=== PATIENT | female | born 1955 | race Caucasian/White ===

== ENCOUNTER 2017-04-05 03:03 | Inpatient (IN) ==
[2017-04-05] MEDS ORDERED: cefTRIAXone 1,000 MG in SODIUM CHLORIDE 0.9% 100 ML IV STA (03:16)
[2017-04-05] MEDS ORDERED: methylPREDNISolone SOD SUC 125 MG/2 ML VIAL IV STA (03:16)
[2017-04-05 03:24] LABS: Basophils # 0.1 10*3/uL (0.0-0.2); Basophils % 0.8 % (0.0-0.8); Eosinophils # 0.6 10*3/uL (0.0-0.87); Eosinophils % 6.8 % (0.00-10.9); Hematocrit 39.7 VOL% (35.7-47.0); Hemoglobin 13.8 GM/DL (12.0-16.0); Immature Granulocytes % 0.3 %; Immature Granulocytes Absolute 0.03 #; Lymphocytes # 1.6 10*3/uL (1.4-4.0); Lymphocytes % 17.9 % (21.3-54.2); Mean Corpuscular HGB Conc 34.8 GM/DL (32-36); Mean Corpuscular Hemoglobin 31 PG (27-34); Mean Platelet Volume 8.4 FL (9.6-12.0); Monocytes # 0.7 10*3/uL (0.11-0.8); Monocytes % 7.3 % (1.7-12.7); Neutrophils % 66.9 % (38.7-73.9); Platelet Count 232 T/CUMM (130-400); Red Blood Count 4.46 MC/CUMM (3.8-5.5); White Blood Count 8.9 T/CUMM (4-12)
--- NOTE | 2017-04-05 03:24 | Emergency Department Note ---
Rei Henry Hilary, am scribing for, and in the presence of, Rob Gary MD 03:22. Cookie Henry Charles R, MD, personally performed the services described in this documentation, ascribed by Kerry Minaya in my presence, and it is both accurate and complete 324 . Arrival - Arrival Chief Complaint: Shortness of Breath Stated Complaint: have COPD ED Nursing Triage Note: pt to room via wc. pt states she has been sob all night . pt has audible wheezing. pt states she took a breathing tx but did not get any better. Mode of Arrival: Wheelchair Limitations: No Limitations Source: Patient, Significant other (), RN Notes Reviewed Time Seen by Provider: 04/05/17 03:13 - History of Present Illness HPI Narrative: Pt is a 62 y/o white female presenting to the ED with c/o SOB which onset this evening. Pt reports that she has COPD and does home breathing treatments at home but doesn't have in home oxygen. Pts confirms that she did her last breathing treatment 40 min ago with no relief. No other complaints or problems stated in the ED. Onset (ago): hour(s) Consistency: constant Severity: moderate Severity scale (1-10): 5 Allergies/Adverse Reactions: Allergies Allergy/AdvReac Type Severity Reaction Status Date / Time Sulfa (Sulfonamide Allergy ITCHING Verified 04/05/17 03:16 Antibiotics) Review of System - Review of System 12 point system: reviewed and no additional remarkable complaints except as stated - Review of System Constitutional: Absent: fever Respiratory: Present: respiratory distress (SOB) Cardiovascular: Absent: chest pain Medical,Surgical,& Family Hx - Medical History Respiratory: History of: COPD - Social History Smoking Status: Former smoker Frequency of Alcohol Use: None Type of Drug Use: None Exam Vital Signs: Vital Signs Temperature 98.1 F 04/05/17 03:07 Pulse Rate 48 L 04/05/17 03:42 Respiratory Rate 20 04/05/17 03:42 Blood Pressure 150/80 04/05/17 03:07 O2 Sat by Pulse Oximetry 99 04/05/17 03:42 - General General appearance: alert, in no apparent distress - Head Head exam: Present: atraumatic, normocephalic - Eye Eye exam: Present: normal appearance, PERRL, EOMI - ENT ENT exam: Present: mucous membranes moist, TM's normal bilaterally. Absent: mucous membranes dry - Neck Neck exam: Present: full ROM, trachea midline. Absent: tenderness - Chest Chest inspection: Present: symmetric chest wall rise. Absent: tenderness - Respiratory Respiratory exam: Present: respiratory distress (moderate respiratory distress) , rhonchi, wheezes. Absent: normal lung sounds bilaterally (decreased breath sounds) - Cardiovascular Cardiovascular exam: Present: normal rhythm, tachycardia, normal heart sounds. Absent: murmur, rubs, gallop - Abdominal Exam Abdominal exam: Present: soft, normal bowel sounds. Absent: distention, tenderness - Extremities Exam Extremities exam: Present: full ROM. Absent: tenderness - Back Exam Back exam: Present: full ROM. Absent: tenderness - Neurological Exam Neurological exam: Present: alert, oriented X3, CN II-XII intact. Absent: motor sensory deficit - Psychiatric Psychiatric exam: Present: normal affect, normal mood - Skin Skin exam: Present: warm, dry, intact, normal color. Absent: rash Course - Reevaluation(s) Reevaluation #1: Patient reevaluated her heart rate has slowed down she is not having frequent PVCs she feels much better never had chest pain labs are within normal limits. We will put her in the hospital for COPD exacerbation. Patient still has having widespread rhonchi wheezing overall improvement of her breathing but still respiratory distress Time: 04:22 - Consultations Time: 04:22 Results - Labs CBC & BMP: 04/05/17 03:20 04/05/17 03:20 Lab Results: I have reviewed the patients labs Labs: Laboratory Tests 04/05/17 03:20 INR 1.0 PT Patient/Control Mix 10.4 D-Dimer, Quantitative <= 0.5 Laboratory Tests 04/05/17 03:39 ABG pO2 102.0 H ABG Total CO2 19.3 L ABG Base Excess -2.9 L Laboratory Tests 04/05/17 04/05/17 03:20 03:20 WBC 8.9 RBC 4.46 Hgb 13.8 Hct 39.7 MPV 8.4 L Lymph % (Auto) 17.9 L Sodium 141 Potassium 3.8 Chloride 106 Carbon Dioxide 25 Glucose 164 H Total Bilirubin < 0.39 L Critical Care Time Critical Care Time: Yes Total Critical Care Time: 60 Disposition Clinical Impression: Acute exacerbation of chronic obstructive airways disease, Hypoxia, Acute respiratory distress Case discussed with: patient, patient's family Disposition: Still a Patient Condition: Guarded Time of Disposition: 04:25
[2017-04-05] MEDS ORDERED: methylPREDNISolone SOD SUC 125 MG/2 ML VIAL ONE (03:26)
[2017-04-05] MEDS ORDERED: cefTRIAXone 1,000 MG VIAL ONE (03:26)
[2017-04-05] MEDS ORDERED: ALBUTEROL 2.5 MG/3 ML NEB RESP TX SCH (03:30)
[2017-04-05 03:36] LABS: D-Dimer <= 0.5 MG/L FEU; PT Patient Result 10.4 SECS
[2017-04-05 03:50] LABS: Alanine Aminotransferase 43 U/L (13-56); Albumin 3.8 G/DL (3.4-5.0); Alkaline Phosphatase 98 U/L (45-117); Aspartate Amino Transferase 26 U/L (0-37); Blood Urea Nitrogen 11 MG/DL (7-18); Calcium 9.3 MG/DL (8.5-10.1); Glucose 164 MG/DL (74-106); Magnesium 1.8 MG/DL (1.8-2.4); Osmolality,Calculated 283.3 MOS/KG (273-304); Potassium 3.8 MMOL/L (3.5-5.1); Sodium 141 MMOL/L (136-145); Total Protein 6.6 G/DL (6.4-8.3); Troponin I Only 0.036 NG/ML (0.00-0.045)
[2017-04-05 03:58] LABS: ABG Base Excess -2.9 MMOL/L (-2.5-2.5); ABG Oxygen Saturation 97.6 % (95-100); ABG PCO2 38.2 MM HG (35-48); ABG PH 7.369 (7.35-7.45); ABG TCO2 19.3 MMOL/L (23-27)
[2017-04-05] MEDS ORDERED: ENOXAPARIN 40 MG/0.4 ML SYRINGE SUBCUT STA (04:29)
[2017-04-05] MEDS ORDERED: ENOXAPARIN 40 MG/0.4 ML SYRINGE ONE (04:46)
[2017-04-05] MEDS ORDERED: ONDANSETRON 4 MG/2 ML VIAL IV PRN (05:01)
[2017-04-05] MEDS ORDERED: ALBUTEROL/IPRATROPIUM 3 ML NEB RESP TX PRN (05:01)
[2017-04-05] MEDS ORDERED: MORPHINE 2 MG/1 ML SYRINGE IV PRN (05:01)
--- NOTE | 2017-04-05 05:02 | Hospitalist History & Physical ---
Assessment and Plan (1) Frequent PVCs Status: Acute Current Visit: Yes (2) Acute exacerbation of chronic obstructive airways disease Status: Acute Current Visit: Yes (3) Hypoxia Status: Acute Current Visit: Yes (4) Acute respiratory distress Status: Acute Assessment and plan: Our plan for this patient will be admitting her to our service. I would like to consult both pulmonary and cardiology and assistance with this patient. Schedule breathing treatments and steroids home meds as appropriate when they are confirmed Current Visit: Yes History of Present Illness Chief complaint: Shortness of breath History of present illness: Ms. Shine is a 62 year old female past medical history including COPD bipolar disorder seizure disorder hypertension and insomnia has been struggling with shortness of breath 8 days. She quit smoking approximately 4-1/2 years ago. Was diagnosed with COPD and is on Spiriva. She has not been followed by a poke in. Yesterday she went to her neurologist and he gave her steroid shot and some cough syrup. She did a little bit better for little while. Her woke up tonight and found her on the couch. She was wheezing and had taken 2 breathing treatments without much results he brought her up here for further evaluation. Patient was seen in our emergency room treated with breathing treatments and steroids. Patient's rhythm strip showed a lot of PVCs. 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 We were consulted to admit her. Allergies Allergy/AdvReac Type Severity Reaction Status Date / Time Sulfa (Sulfonamide Allergy ITCHING Verified 04/05/17 03:16 Antibiotics) Medical,Surgical,& Family Hx - Medical History Respiratory: History of: COPD - Surgical History Abdominal Surgeries: Surgical HX of: Cholecystectomy Reproductive Surgeries: Surgical HX of;: Breast Surgery, Hysterectomy - Family History Family History: Reports;: Family Cancer, Family Diabetes, Family Heart Disease - Social History Smoking Status: Former smoker Frequency of Alcohol Use: None Type of Drug Use: None 12 point system: reviewed and no additional remarkable complaints except as stated Exam - Constitutional Vitals: Period Temp Pulse Resp BP Sys/Heath Pulse Ox Last 24 Hr 98.1 F-98.1 F 48-118 20-228 150-159/80-83 85-99 - General General appearance: alert, in no apparent distress - Head Head exam: Present: atraumatic, normocephalic - Eye Eye exam: Present: normal appearance, PERRL, EOMI - ENT ENT exam: Present: mucous membranes moist, TM's normal bilaterally - Neck Neck exam: Present: full ROM, trachea midline - Chest Chest inspection: Present: symmetric chest wall rise - Respiratory Respiratory exam: Present: respiratory distress (moderate respiratory distress) , rhonchi, wheezes. - Cardiovascular Cardiovascular exam: Present: normal rhythm, tachycardia, normal heart sounds. - Abdominal Exam Abdominal exam: Present: soft, normal bowel sounds. . - Extremities Exam Extremities exam: Present: full ROM. . - Back Exam Back exam: Present: full ROM. . - Neurological Exam Neurological exam: Present: alert, oriented X3, CN II-XII intact. - Psychiatric Psychiatric exam: Present: normal affect, normal mood - Skin Skin exam: Present: warm, dry, intact, normal color. Results - Labs CBC & BMP: 04/05/17 03:20 04/05/17 03:20
--- NOTE | 2017-04-05 05:36 | EKG Report ---
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
--- NOTE | 2017-04-05 06:02 | EKG Report ---
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
[2017-04-05] MEDS: SODIUM CHLORIDE 0.9% 1,000 ML IV SCH ×2 (06:28→18:05)
--- NOTE | 2017-04-05 07:35 | XRay Report ---
XR chest 1V portable Indication: SOB Comparison: Chest x-ray dated March 05, 2017 Technique: Single frontal view of the chest. Findings: The cardiomediastinal silhouette is stable in configuration. Pulmonary hyperinflation again suggests emphysematous change. There are somewhat branching linear opacities within the bilateral upper lungs which are nonspecific. Considerations include infectious/inflammatory process such as allergic bronchopulmonary aspergillosis. Visualized osseous and surrounding soft tissue structures appear grossly unchanged. IMPRESSION: As above. PROCEDURE INTERPRETED AT [facility] DEPARTMENT OF RADIOLOGY Final Report Signed by: Dr Wolf Wolf
[2017-04-05] MEDS ORDERED: ALBUTEROL 2.5 MG/3 ML NEB RESP TX PRN (08:15)
[2017-04-05] MEDS: AZITHROMYCIN INJ 500 MG in SODIUM CHLORIDE 0.9% 250 ML IV SCH (09:44)
--- NOTE | 2017-04-05 09:58 | Hospitalist Progress Note ---
Hospitalist: Subjective Interval history: I reveiwed pt's labs today. I reviewed pt's CXR report and image today. I discussed with pt in regarding her clinical status today. Pt and her states that she feels much better now with less difficulty in breathing. On physical exam, pt has wheezing at ending phase of expiration. Will change Duoneb to Q4H scheduled. Add albuterol NEB Q1H PRN. Continue oxygen. On IV rocephin and azithromycin for COPD exacerbation. Can transfer to floor with monitored bed later today if continue to do well. After midnight adm, no charge for this progress note. Guille Mayen MD PhD 04/05/17 Exam - Constitutional Vitals: Period Temp Pulse Resp BP Sys/Heath Pulse Ox Last 24 Hr 98 F-98.4 F 48-118 18-228 133-166/80-96 85-100 Results - Labs CBC & BMP: 04/05/17 03:20 04/05/17 03:20
[2017-04-05] MEDS: PANTOPRAZOLE 40 MG TABLET PO SCH ×2 (10:25→12:02)
[2017-04-05] MEDS: ALBUTEROL/IPRATROPIUM 3 ML NEB RESP TX SCH ×4 (10:50→23:23)
[2017-04-05] MEDS: methylPREDNISolone SOD SUC 40 MG/1 ML VIAL IV SCH ×2 (12:04→20:47)
[2017-04-05 12:28] LABS: Bilirubin,Total < 0.39 MG/DL (0.2-1.0)
--- NOTE | 2017-04-05 13:13 | EKG Report ---
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
--- NOTE | 2017-04-05 13:21 | Cardiology Consult Note ---
Mathieu Henry April, RN, am scribing for, and in the presence of, Ty Roldan MD 13:21. Assessment and Plan - Time spent with patient Time spent with patient: Greater than 30 minutes (Due to assessment, planning, documentation, medication review) (1) Bigeminy Status: Acute Assessment and plan: The patient is having frequent bigeminy. She had a recent workup done by Dr. Ceja including a treadmill Cardiolite, echo, Holter. These were unremarkable other than the frequent bigeminy. Intermittent minimal symptoms with it. She does not feel palpitations Plan/records: Given her lung disease would not want to use a beta-conrad Sent given her minimal symptoms with a ventricular bigeminy I would favor not use any calcium channel conrad , mexiletine, or other forms of treatment I will start her on a low-dose of magnesium and potassium as she has borderline low potassium and magnesium levels Agree with treating her COPD with exacerbation aggressively She has an E scope for sometime next week with Dr. Bean. The above was discussed with the patient. She agrees with the plan and understands. 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 Shine is a 62 year old female who is routinely followed by Dr. Ceja with a history of seizures, hypertension, and COPD. She saw Dr. Ceja in the office in January with complaints of chest pain and shortness of breath for 2 years and had a workup done. Echo showed ejection fraction of 60%. Nuclear stress test was read as a normal perfusion study, no perfusion defects noted. It was suggestive of low risk for future cardiovascular events. She had a 40 hour Holter with heart rates ranging 56-128. She had rare nonsustained supraventricular tachycardia noted that was suggestive of atrial tachycardia. Longest run was 11 beats. Frequent PVCs were noted with rare nonsustained bigeminy noted. It was felt this was not significant and no further workup was warranted. She has significant family history of heart disease that includes father with cancer and stroke, 2 brothers with history of CABG and a sister with history of CABG. She reports she quit smoking 4 years ago. Before that time she had smoked 2 packs a week for 40 years. She reports she has had complaints of "smothering" since last Saturday. She has been treated in the past for chronic bronchitis. She states is severe shortness of breath she has had this week has had no respiratory particular triggers or alleviating factors. She does note that her shortness of breath is worse in the morning and at night, it has been waking her up. She saw the neurologist at some point over the last week and he gave her a steroid shot and started on cough medicine. She has a consultation appointment to see a technical business systems analyst next month. She denies having any chest pain, palpitations, or dizziness associated with these symptoms. Chest x-ray suggested infectious/ inflammatory process such as allergic bronchopulmonary aspergillosis. Labs have been unremarkable. She was placed on oxygen and given IV Solu-Medrol in the emergency department. She reports this did help her shortness of breath. We have been asked to see the patient for PVCs. EKG showed sinus tachycardia with bigeminy, heart rate of 113. Troponin has been negative. She continues to be short of breath, but states that it is improved. Oxygen is in use via nasal cannula. She continues to deny any chest pain, palpitations, or dizziness. CC: Guille Mayen MD - Home Medications and Allergies Home Medications: Home Medications Medication Instructions Recorded Confirmed Type [place] Cap 300 mg PO BEDTIME 04/05/17 04/05/17 History NIFEdipine XL TAB [Procardia Xl] 60 mg PO DAILY 04/05/17 04/05/17 History OXcarbazepine [Oxcarbazepine] 600 mg PO DAILY 04/05/17 04/05/17 History Promethazine/Dextromethorphan 5 - 10 mls PO Q6HR PRN 04/05/17 04/05/17 History [Promethazine-Dm Syrup] Tiotropium Inhalation [Spiriva 18 mcg DAILY 04/05/17 04/05/17 History Handihaler] Trazodone HCl [Trazodone HCl] 150 mg PO BEDTIME 04/05/17 04/05/17 History Allergies/Adverse Reactions: Allergies Allergy/AdvReac Type Severity Reaction Status Date / Time Sulfa (Sulfonamide Allergy ITCHING Verified 04/05/17 03:16 Antibiotics) - Constitutional Constitutional: Present: as per HPI - EENT Eyes: Present: requires corrective lense. Absent: blurry vision, loss of vision Ears: Absent: decreased hearing, ear pain, tinnitus Nose, mouth and throat: Absent: dysphagia, epistaxis, headache(s) - Cardiovascular Cardiovascular: Present: dyspnea, lightheadedness. Absent: chest pain at rest, chest pain with activity, diaphoresis, edema, radiating jaw, neck or arm pain, orthopnea, palpitations - Respiratory Respiratory: Present: cough, dyspnea, wheezing. Absent: hemoptysis - Gastrointestinal Gastrointestinal: Absent: abdominal pain, constipation, diarrhea, hematemesis, hematochezia, melena, nausea, vomiting - Genitourinary Genitourinary: Absent: dysuria, hematuria - Musculoskeletal Musculoskeletal: Absent: limited range of motion, muscle weakness - Neurological Neurological: Present: dizziness. Absent: abnormal gait, abnormal speech, confusion, frequent falls, headache(s), syncope - Psychiatric Psychiatric: Absent: confusion, depression - Endocrine Endocrine: Absent: fatigue - Hematologic/Lymphatic Hematologic/Lymphatic: Absent: easy bleeding, easy bruising Medical,Surgical,& Family Hx - Medical History Psychological: History of: Psychiatric Problems (take lithuim) Respiratory: History of: COPD - Surgical History Abdominal Surgeries: Surgical HX of: Cholecystectomy Reproductive Surgeries: Surgical HX of;: Breast Surgery (Breast augmentation), Hysterectomy - Family History Family History: Reports;: Family Cancer (Father), Family Heart Disease (2 brothers and a sister) - Social History Smoking Status: Former smoker (Quit 4 years ago) Have you smoked in the last 12 months: No Frequency of Alcohol Use: None Type of Drug Use: None Marital Status: Lives With:: Spouse Functional capacity: independent ambulation Physical Examination Vital Signs Temp Pulse Resp BP Pulse Ox 98.1 F 84 228 H 150/80 85 L 04/05/17 03:07 04/05/17 03:07 04/05/17 03:07 04/05/17 03:07 04/05/17 03:07 General: Present: Appears Well, No Apparent Distress HEENT: Present: PERRL, Mucus Membranes Moist Neck: Present: Supple Neck, Midline Trachea, No Bruit Cardiac: Present: Regular Rhythm (Bigeminy), No Murmur, Tachycardia Lungs: Present: Wheezes, Scattered Rhonchi, Oxygen (Via nasal cannula) Neuro: Absent: Resting Tremor, Essential Tremor Abdomen: Present: Soft, Active Bowel Sounds, Non-Tender. Absent: Distended Skin: Present: Rash (To back, she has been seeing a child psychiatrist). Absent: Suspicious Lesions, Ulceration Musculoskeletal: Present: No Pain, Normal Range of Motion Gait: Present: Normal Gait Extremities: Present: Normal Gait, No Edema, Normal Upper Extr. Pulses, Normal Lower Extr. Pulses Result/EKG - Labs CBC & BMP: 04/05/17 03:20 04/05/17 03:20 Lab Results: I have reviewed the past 24 hour labs Labs: Laboratory Results - last 24 hr 04/05/17 04/05/17 04/05/17 03:20 03:20 03:20 WBC 8.9 RBC 4.46 Hgb 13.8 Hct 39.7 MCV 89.0 MCH 31 MCHC 34.8 RDW 12.0 Plt Count 232 MPV 8.4 L Neut % (Auto) 66.9 Lymph % (Auto) 17.9 L [place] % (Auto) 7.3 Eos % (Auto) 6.8 Baso % (Auto) 0.8 Neut # (Auto) 6.0 Lymph # (Auto) 1.6 [place] # (Auto) 0.7 Eos # (Auto) 0.6 Baso # (Auto) 0.1 Immature Gran % 0.3 Nucleated RBC % 0.0 Immature Gran # 0.03 Nucleated RBCs # 0.00 INR 1.0 PT Patient/Control Mix 10.4 D-Dimer, Quantitative <= 0.5 ABG pH ABG pCO2 ABG pO2 ABG HCO3 ABG Total CO2 ABG O2 Saturation ABG Base Excess FiO2 Sodium 141 Potassium 3.8 Chloride 106 Carbon Dioxide 25 Anion Gap 13.8 BUN 11 Creatinine 1.00 GFR Calculation 51 BUN/Creatinine Ratio 11.00 Glucose 164 H Calculated Osmolality 283.3 Calcium 9.3 Magnesium 1.8 Total Bilirubin < 0.39 L AST 26 ALT 43 Alkaline Phosphatase 98 Troponin I 0.036 B-Natriuretic Peptide Total Protein 6.6 Albumin 3.8 Globulin 2.8 Albumin/Globulin Ratio 1.3 04/05/17 04/05/17 03:20 03:39 WBC RBC Hgb Hct MCV MCH MCHC RDW Plt Count MPV Neut % (Auto) Lymph % (Auto) [place] % (Auto) Eos % (Auto) Baso % (Auto) Neut # (Auto) Lymph # (Auto) [place] # (Auto) Eos # (Auto) Baso # (Auto) Immature Gran % Nucleated RBC % Immature Gran # Nucleated RBCs # INR PT Patient/Control Mix D-Dimer, Quantitative ABG pH 7.369 ABG pCO2 38.2 ABG pO2 102.0 H ABG HCO3 22.0 ABG Total CO2 19.3 L ABG O2 Saturation 97.6 ABG Base Excess -2.9 L FiO2 28.00 Sodium Potassium Chloride Carbon Dioxide Anion Gap BUN Creatinine GFR Calculation BUN/Creatinine Ratio Glucose Calculated Osmolality Calcium Magnesium Total Bilirubin AST ALT Alkaline Phosphatase Troponin I B-Natriuretic Peptide 159 H Total Protein Albumin Globulin Albumin/Globulin Ratio - Diagnostic Findings Procedure: Chest x-ray: report reviewed by me - EKG EKG results: interpreted by me EKG shows: tachycardia, sinus rhythm (Sinus tachycardia with bigeminy) IYuli Dale, MD, personally performed the services described in this documentation, ascribed by Lore Murdock RN in my presence, and it is both accurate and complete 321 .
[2017-04-05] MEDS: LITHIUM 300 MG CAPSULE PO SCH (20:47)
[2017-04-06] MEDS: ALBUTEROL/IPRATROPIUM 3 ML NEB RESP TX SCH ×5 (03:20→19:12)
[2017-04-06] MEDS: methylPREDNISolone SOD SUC 40 MG/1 ML VIAL IV SCH ×3 (03:52→20:20)
[2017-04-06 04:48] LABS: Basophils % 0.1 % (0.0-0.8); Eosinophils % 0.1 % (0.00-10.9); Hematocrit 36.3 VOL% (35.7-47.0); Hemoglobin 12.3 GM/DL (12.0-16.0); Immature Granulocytes % 0.6 %; Immature Granulocytes Absolute 0.05 #; Lymphocytes # 0.7 10*3/uL (1.4-4.0); Lymphocytes % 8.6 % (21.3-54.2); Mean Corpuscular HGB Conc 33.9 GM/DL (32-36); Mean Corpuscular Hemoglobin 31 PG (27-34); Mean Corpuscular Volume 91.9 FL (87-102); Mean Platelet Volume 9.3 FL (9.6-12.0); Monocytes # 0.4 10*3/uL (0.11-0.8); Monocytes % 4.5 % (1.7-12.7); Neutrophils # 7.1 10*3/uL (1.4-7.4); Neutrophils % 86.1 % (38.7-73.9); Platelet Count 180 T/CUMM (130-400); Red Blood Count 3.95 MC/CUMM (3.8-5.5); White Blood Count 8.2 T/CUMM (4-12)
[2017-04-06 05:16] LABS: Calcium 8.7 MG/DL (8.5-10.1); Osmolality,Calculated 285.8 MOS/KG (273-304); Potassium 4.4 MMOL/L (3.5-5.1)
[2017-04-06 05:20] LABS: Albumin 3.1 G/DL (3.4-5.0); Bilirubin,Total 0.5 MG/DL (0.2-1.0); Calcium 8.8 MG/DL (8.5-10.1); Magnesium 2.2 MG/DL (1.8-2.4); Potassium 4.7 MMOL/L (3.5-5.1); Risk Ratio 2.1; Total Protein 5.5 G/DL (6.4-8.3)
[2017-04-06] MEDS: SODIUM CHLORIDE 0.9% 1,000 ML IV SCH (07:25)
[2017-04-06] MEDS: PANTOPRAZOLE 40 MG TABLET PO SCH ×2 (08:45→20:20)
[2017-04-06] MEDS: ENOXAPARIN 40 MG/0.4 ML SYRINGE SUBCUT SCH (08:45)
[2017-04-06] MEDS: OXcarbazepine 300 MG TABLET PO SCH (08:45)
--- NOTE | 2017-04-06 10:51 | XRay Report ---
History short of breath Comparison 04/05/2017 Mediastinal and hilar contours are unchanged No new infiltrates are seen Impression: No interval change PROCEDURE INTERPRETED AT [facility] DEPARTMENT OF RADIOLOGY Final Report Signed by: Dr. Pauly Serrano
[2017-04-06] MEDS: AZITHROMYCIN INJ 500 MG in SODIUM CHLORIDE 0.9% 250 ML IV SCH (10:58)
--- NOTE | 2017-04-06 13:28 | Hospitalist Progress Note ---
Assessment and Plan (1) Acute exacerbation of chronic obstructive airways disease Status: Acute Assessment and plan: duonebs, azithromycin, steroids 40 mg IV every 8 hours. Current Visit: Yes (2) Bigeminy Status: Acute Assessment and plan: chronic problems transferred from telemetry, monitor discontinued. Current Visit: Yes (3) GERD (gastroesophageal reflux disease) Status: Acute Assessment and plan: Scheduled for an EGD next week with Dr. Bean, protonix 40 mg po bid Current Visit: Yes Hospitalist: Subjective Interval history: Patient doing better today. Her bigeminy is already known to cardiology and no treatment is necessary. Monitor will be discontinued. Her wheezing is a little bit better today but she still very diminished. I am hep locking her fluids as her BNP is climbing Exam - Constitutional Vitals: Period Temp Pulse Resp BP Sys/Heath Pulse Ox Last 24 Hr 97.7 F-99.1 F 72-112 18-22 120-151/67-84 92-99 Exam: Heart Rate-[irregular due to bigeminy] Lungs-[diminished and wheezing] GI-[+bs soft, NT] Ext-[no edema] Neuro [Motor 5/5], [alert and oriented times 3] psych [normal mood and affect] General [no acute distress] Results - Labs CBC & BMP: 04/06/17 03:57 04/06/17 03:57 Lab Results: I have reviewed the past 24 hour labs Labs: Blood cultures 2 negative - Diagnostic Findings Procedure: Chest x-ray: report reviewed by me (No evidence of pneumonia)
--- NOTE | 2017-04-06 13:52 | Cardiology Progress Note ---
Assessment and Plan (1) Bigeminy Status: Acute Assessment and plan: The patient is having frequent bigeminy. She had a recent workup done by Dr. Ceja including a treadmill Cardiolite, echo, Holter. These were unremarkable other than the frequent bigeminy. Intermittent minimal symptoms with it. She does not feel palpitations Plan/records: Given her lung disease would not want to use a beta-conrad Sent given her minimal symptoms with a ventricular bigeminy I would favor not use any calcium channel conrad , mexiletine, or other forms of treatment I will start her on a low-dose of magnesium and potassium as she has borderline low potassium and magnesium levels Agree with treating her COPD with exacerbation aggressively She has an E scope for sometime next week with Dr. Bean. The above was discussed with the patient. She agrees with the plan and understands. Thank you for allowing me to participate in this patient's care 04/06/17 The COPD with exacerbation is better. Heart rate is trending down to low 100s PVCs are noted on monitor Less wheezing Continue current therapy Watch for any arrhythmias Current Visit: Yes (2) Acute exacerbation of chronic obstructive airways disease Status: Acute Current Visit: Yes Cardiology - PN: Subj Interval history: No chest pain. Less shortness of breath. Less wheezing. Exam (Progress Note) - Constitutional Vitals: Period Temp Pulse Resp BP Sys/Heath Pulse Ox Last 24 Hr 97.7 F-99.1 F 72-112 18-22 120-151/67-84 92-99 Exam: HEENT: Pupils equal, reactive to light and accommodation Neck: NoJVD or bruit Lungs clear to auscultation, decreased breath sounds, minimal to no wheezes Heart: Regular rhythm rate with normal S1 and S2. Apical S4 Abdomen: No hepatosplenomegaly Spine/extremities: No clubbing, cyanosis, or edema Neuro: Nonfocal Psych: No depression or anxiety Result/EKG - Labs CBC & BMP: 04/06/17 03:57 04/06/17 03:57 Labs: Laboratory Results - last 24 hr 04/06/17 04/06/17 04/06/17 03:57 03:57 03:57 WBC 8.2 RBC 3.95 Hgb 12.3 Hct 36.3 MCV 91.9 MCH 31 MCHC 33.9 RDW 12.0 Plt Count 180 D MPV 9.3 L Neut % (Auto) 86.1 H Lymph % (Auto) 8.6 L [place] % (Auto) 4.5 Eos % (Auto) 0.1 Baso % (Auto) 0.1 Neut # (Auto) 7.1 Lymph # (Auto) 0.7 L [place] # (Auto) 0.4 Eos # (Auto) 0.0 Baso # (Auto) 0.0 Immature Gran % 0.6 Nucleated RBC % 0.0 Immature Gran # 0.05 Nucleated RBCs # 0.00 Sodium 143 Potassium 4.7 Chloride 110 H Carbon Dioxide 26 Anion Gap 11.7 BUN 10 Creatinine 0.80 GFR Calculation 67 BUN/Creatinine Ratio 12.00 Glucose 120 H Calculated Osmolality 284.0 Calcium 8.8 Magnesium 2.2 Total Bilirubin 0.50 AST 15 ALT 29 Alkaline Phosphatase 78 B-Natriuretic Peptide 229 H Total Protein 5.5 L Albumin 3.1 L Globulin 2.4 Albumin/Globulin Ratio 1.2 Triglycerides 55 Cholesterol 153 LDL Cholesterol 70.0 VLDL Cholesterol 11.0 HDL Cholesterol 73 H Heart Disease Risk Ratio 2.10 04/06/17 03:57 WBC RBC Hgb Hct MCV MCH MCHC RDW Plt Count MPV Neut % (Auto) Lymph % (Auto) [place] % (Auto) Eos % (Auto) Baso % (Auto) Neut # (Auto) Lymph # (Auto) [place] # (Auto) Eos # (Auto) Baso # (Auto) Immature Gran % Nucleated RBC % Immature Gran # Nucleated RBCs # Sodium 144 Potassium 4.4 Chloride 110 H Carbon Dioxide 26 Anion Gap 12.4 BUN 10 Creatinine 0.80 GFR Calculation 67 BUN/Creatinine Ratio 12.00 Glucose 120 H Calculated Osmolality 285.8 Calcium 8.7 Magnesium 2.0 Total Bilirubin AST ALT Alkaline Phosphatase B-Natriuretic Peptide Total Protein Albumin Globulin Albumin/Globulin Ratio Triglycerides Cholesterol LDL Cholesterol VLDL Cholesterol HDL Cholesterol Heart Disease Risk Ratio Specialty Discharge - Follow Up or Referrals Follow up with: Saturnino Ceja MD [Physician] -
[2017-04-06] MEDS: FUROSEMIDE 40 MG/4 ML VIAL IV SCH (14:41)
[2017-04-06] MEDS: LITHIUM 300 MG CAPSULE PO SCH (20:20)
[2017-04-07] MEDS: ALBUTEROL/IPRATROPIUM 3 ML NEB RESP TX SCH ×7 (00:08→22:51)
[2017-04-07] MEDS: methylPREDNISolone SOD SUC 40 MG/1 ML VIAL IV SCH ×3 (03:57→18:21)
[2017-04-07 04:31] LABS: Basophils % 0.1 % (0.0-0.8); Eosinophils % 0.1 % (0.00-10.9); Hematocrit 37.7 VOL% (35.7-47.0); Hemoglobin 12.9 GM/DL (12.0-16.0); Immature Granulocytes % 0.4 %; Immature Granulocytes Absolute 0.04 #; Lymphocytes # 0.9 10*3/uL (1.4-4.0); Lymphocytes % 9.6 % (21.3-54.2); Mean Corpuscular HGB Conc 34.2 GM/DL (32-36); Mean Corpuscular Hemoglobin 31 PG (27-34); Mean Platelet Volume 9.4 FL (9.6-12.0); Monocytes # 0.5 10*3/uL (0.11-0.8); Monocytes % 5.5 % (1.7-12.7); Neutrophils # 7.6 10*3/uL (1.4-7.4); Neutrophils % 84.3 % (38.7-73.9); Platelet Count 201 T/CUMM (130-400); Red Blood Count 4.19 MC/CUMM (3.8-5.5); Red Cell Distribution Width 12.2 % (9.3-17.3); White Blood Count 9.1 T/CUMM (4-12)
[2017-04-07 04:57] LABS: Calcium 9.5 MG/DL (8.5-10.1); Magnesium 2.3 MG/DL (1.8-2.4); Osmolality,Calculated 286.8 MOS/KG (273-304); Potassium 4.3 MMOL/L (3.5-5.1)
[2017-04-07] MEDS: FUROSEMIDE 40 MG/4 ML VIAL IV SCH (08:28)
[2017-04-07] MEDS: PANTOPRAZOLE 40 MG TABLET PO SCH ×2 (08:28→20:13)
[2017-04-07] MEDS: ENOXAPARIN 40 MG/0.4 ML SYRINGE SUBCUT SCH (08:28)
[2017-04-07] MEDS: OXcarbazepine 300 MG TABLET PO SCH (08:28)
[2017-04-07] MEDS: AZITHROMYCIN INJ 500 MG in SODIUM CHLORIDE 0.9% 250 ML IV SCH (08:35)
[2017-04-07] MEDS: MONTELUKAST 10 MG TABLET PO SCH (11:48)
[2017-04-07] MEDS: BUDESONIDE/FORMOTEROL 160-4.5 INHALER 6 GM INH SCH ×2 (11:49→20:13)
--- NOTE | 2017-04-07 14:45 | Hospitalist Progress Note ---
Assessment and Plan (1) Acute exacerbation of chronic obstructive airways disease Status: Acute Assessment and plan: duonebs, azithromycin, increase steroids 125 mg IV q. 8, start Singulair, start Symbicort, start Spiriva Current Visit: Yes (2) Bigeminy Status: Acute Assessment and plan: Cardiology following. Dr. Roldan does not believe she requires a quality assurance monitor final Current Visit: Yes (3) GERD (gastroesophageal reflux disease) Status: Acute Assessment and plan: Scheduled for an EGD next week with Dr. Bean, protonix 40 mg po bid, consult Dr. Bean in a.m. as it may be exacerbating her COPD Current Visit: Yes Hospitalist: Subjective Interval history: Wheezing worse today and more short of breath. We will increase her steroids and add some Singulair and Symbicort. Dr. Roldan feels that she is stable to be off a monitor. Exam - Constitutional Vitals: Period Temp Pulse Resp BP Sys/Heath Pulse Ox Last 24 Hr 97 F-98.7 F 52-109 17-25 113-145/71-84 93-99 Exam: Heart Rate-tacky] Lungs-[diminished and more wheezing today] GI-[+bs soft, NT] Ext-[no edema] Neuro [Motor 5/5], [alert and oriented times 3] psych [normal mood and affect] General [no acute distress] Results - Labs CBC & BMP: 04/07/17 03:54 04/07/17 03:54 Lab Results: I have reviewed the past 24 hour labs Labs: Blood cultures negative no growth Specialty Discharge - Follow Up or Referrals Follow up with: Saturnino Ceja MD [Physician] -
[2017-04-07] MEDS ORDERED: NON-FORMULARY MEDICATION (Tiotropium Inhalation 18 MCG) INH SCH (15:00)
--- NOTE | 2017-04-07 17:53 | Cardiology Progress Note ---
Assessment and Plan (1) Bigeminy Status: Acute Assessment and plan: The patient is having frequent bigeminy. She had a recent workup done by Dr. Ceja including a treadmill Cardiolite, echo, Holter. These were unremarkable other than the frequent bigeminy. Intermittent minimal symptoms with it. She does not feel palpitations Plan/records: Given her lung disease would not want to use a beta-conrad Sent given her minimal symptoms with a ventricular bigeminy I would favor not use any calcium channel conrad , mexiletine, or other forms of treatment I will start her on a low-dose of magnesium and potassium as she has borderline low potassium and magnesium levels Agree with treating her COPD with exacerbation aggressively She has an E scope for sometime next week with Dr. Bean. The above was discussed with the patient. She agrees with the plan and understands. Thank you for allowing me to participate in this patient's care 04/06/17 The COPD with exacerbation is better. Heart rate is trending down to low 100s PVCs are noted on monitor Less wheezing Continue current therapy Watch for any arrhythmias 04/07/17: Increased wheezing would suggest her COPD with exacerbation slightly worse. Dr. Anali Escobar is to increase treatment for this problem Her VPB's seem to be less at this time. As assessed previously, they seem to be benign Continue current therapy. Current Visit: Yes (2) Acute exacerbation of chronic obstructive airways disease Status: Acute Current Visit: Yes Cardiology - PN: Subj Interval history: No chest pain or palpitations. Does feel slightly more short of breath. Exam (Progress Note) - Constitutional Vitals: Period Temp Pulse Resp BP Sys/Heath Pulse Ox Last 24 Hr 97 F-99.2 F 52-109 17-25 115-145/71-84 94-99 Exam: HEENT: Pupils equal, reactive to light and accommodation Neck: NoJVD or bruit Lungs increased wheezing, bilaterally. Heart: Regular rhythm rate with normal S1 and S2. Apical S4 Abdomen: No hepatosplenomegaly Spine/extremities: No clubbing, cyanosis, or edema Neuro: Nonfocal Psych: No depression or anxiety Result/EKG - Labs CBC & BMP: 04/07/17 03:54 04/07/17 03:54 Lab Results: I have reviewed the past 24 hour labs Labs: Laboratory Results - last 24 hr 04/07/17 04/07/17 03:54 03:54 WBC 9.1 RBC 4.19 Hgb 12.9 Hct 37.7 MCV 90.0 MCH 31 MCHC 34.2 RDW 12.2 Plt Count 201 MPV 9.4 L Neut % (Auto) 84.3 H Lymph % (Auto) 9.6 L [place] % (Auto) 5.5 Eos % (Auto) 0.1 Baso % (Auto) 0.1 Neut # (Auto) 7.6 H Lymph # (Auto) 0.9 L [place] # (Auto) 0.5 Eos # (Auto) 0.0 Baso # (Auto) 0.0 Immature Gran % 0.4 Nucleated RBC % 0.0 Immature Gran # 0.04 Nucleated RBCs # 0.00 Sodium 144 Potassium 4.3 Chloride 108 H Carbon Dioxide 28 Anion Gap 12.3 BUN 12 Creatinine 0.80 GFR Calculation 65 BUN/Creatinine Ratio 15.00 Glucose 123 H Calculated Osmolality 286.8 Calcium 9.5 Magnesium 2.3 Specialty Discharge - Follow Up or Referrals Follow up with: Saturnino Ceja MD [Physician] -
[2017-04-07] MEDS: LITHIUM 300 MG CAPSULE PO SCH (20:13)
[2017-04-08] MEDS: methylPREDNISolone SOD SUC 125 MG/2 ML VIAL IV SCH ×3 (01:42→17:44)
[2017-04-08] MEDS: ALBUTEROL/IPRATROPIUM 3 ML NEB RESP TX SCH ×6 (03:19→23:57)
[2017-04-08 06:56] LABS: Calcium 9.6 MG/DL (8.5-10.1); Magnesium 2.3 MG/DL (1.8-2.4); Osmolality,Calculated 283.4 MOS/KG (273-304); Potassium 3.9 MMOL/L (3.5-5.1)
[2017-04-08] MEDS: ENOXAPARIN 40 MG/0.4 ML SYRINGE SUBCUT SCH (09:51)
[2017-04-08] MEDS: FUROSEMIDE 40 MG/4 ML VIAL IV SCH (09:52)
[2017-04-08] MEDS: PANTOPRAZOLE 40 MG TABLET PO SCH ×2 (09:52→22:32)
[2017-04-08] MEDS: OXcarbazepine 300 MG TABLET PO SCH (09:53)
[2017-04-08] MEDS: MONTELUKAST 10 MG TABLET PO SCH (09:53)
[2017-04-08] MEDS: BUDESONIDE/FORMOTEROL 160-4.5 INHALER 6 GM INH SCH ×2 (09:53→22:30)
[2017-04-08] MEDS: AZITHROMYCIN INJ 500 MG in SODIUM CHLORIDE 0.9% 250 ML IV SCH (12:21)
--- NOTE | 2017-04-08 14:40 | Gastrointestinal Progress Note ---
Assessment and Plan (1) Atypical chest pain Status: Acute Assessment and plan: Patient was feeling some previous atypical chest pain when I saw her in the office on 04/04/17 along with fairly severe reflux. Sometimes her chest pain will be as high as 10 out of 10 with a slight burning quality to it. She had been on Dexilant at some point in the past but has been recently transitioned back to Nexium 40 mg daily. Here in the hospital, she is getting Protonix twice daily and she continues to do well with this will likely give her this medication instead. We will be performing upper endoscopy tomorrow in order to assess the degree of damage to the esophagus and look for evidence of Rizzo's esophagus as well as gastritis. She is not having dysphagia and does not need to be dilated. If she continues to have issues despite a normal-appearing EGD we may want to either check her gastric emptying or perform 48 hour pH monitoring study to look for complete suppression. The patient was advised of potential risks of the procedure which include but are not limited to: Leading, infection, perforation, cardiac and pulmonary compromise. Current Visit: Yes (2) GERD (gastroesophageal reflux disease) Status: Acute Assessment and plan: Patient is being covered with Protonix 40 mg twice daily for acid suppression, this appears to be doing quite well for the patient. Current Visit: Yes Gastroenterology - PN: Subj Interval history: This patient was seen in the office for initial consultation as recently as the day before she presented to the emergency room. I have made a copy of my initial consultation which should be entered into the EMR. Gracie is doing well at this point with some ongoing reflux that Dr. Escobar was concerned may be impacting her breathing. Believe Dr. Ceja was concerned about the same thing when he sent her over to see me for the consultation on 04/04/17. Her reflux is under fair control using the Protonix twice daily. She has some epigastric tenderness that she feels is secondary to the previous constant coughing. Exam (Progress Note) - Constitutional Vitals: Period Temp Pulse Resp BP Sys/Heath Pulse Ox Last 24 Hr 97.3 F-99.2 F 50-112 16-20 111-145/54-90 92-99 General appearance: mild distress (With wheezing) - Head Head exam: Present: normal inspection - Eye Eye exam: Present: EOMI - Respiratory Respiratory exam: Present: wheezes. Absent: accessory muscle use, rhonchi, stridor - Cardiovascular Cardiovascular exam: Present: regular rate and rhythm. Absent: systolic murmur - GI/Abdominal GI/Abdominal exam: Present: normal bowel sounds, tenderness (Epigastric tenderness), soft. Absent: distended, guarding, rebound - Extremities Exam Extremities exam: Absent: edema - Neurological Exam Neurological exam: Present: alert, oriented X3, CN II-XII intact. Absent: altered, motor sensory deficit - Psychiatric Psychiatric exam: Present: normal affect, normal mood. Absent: anxious - Skin Skin exam: Present: warm Results - Labs CBC & BMP: 04/07/17 03:54 04/08/17 06:04 Specialty Discharge - Follow Up or Referrals Follow up with: Saturnino Ceja MD [Physician] -
--- NOTE | 2017-04-08 14:59 | Hospitalist Progress Note ---
Hospitalist: Subjective Interval history: Patient states that her breathing is better. She states that she feels like she needs to cough up the sputum. Exam - Constitutional Vitals: Period Temp Pulse Resp BP Sys/Heath Pulse Ox Last 24 Hr 97.3 F-99.2 F 50-112 16-20 111-145/54-90 92-99 General appearance: mild distress (tachypneic but able to speak in complete sentences) - Eye Eye exam: Present: EOMI - Respiratory Respiratory exam: Present: decreased breath sounds, prolonged expiratory phase, rhonchi (no wheezes appreciated) - Cardiovascular Cardiovascular exam: Present: regular rate and rhythm - GI/Abdominal GI/Abdominal exam: Present: normal bowel sounds - Neurological Exam Neurological exam: Present: oriented X3 Results - Labs CBC & BMP: 04/07/17 03:54 04/08/17 06:04 - Impressions Assessment and Plan: 1. COPD with acute exacerbation: slowing improving; continue current regimen of steroids/leukotriene inhibitors/bronchodilators/ antibiotics; will also consult pulmonary per patient's request. Add mucinex; consult RT for home o2 evaluation when patient is near discharge 2. Bigeminy: seen by cardiology who did not recommend martha blockers; keep Mg at least 2 and K at least 4 3. GERD: seen by GI who will perform an EGD tomorrow; continue protonix Specialty Discharge - Follow Up or Referrals Follow up with: Saturnino Ceja MD [Physician] -
--- NOTE | 2017-04-08 17:16 | Cardiology Progress Note ---
Jose Henry Vanessa, RN, am scribing for, and in the presence of, Saturnino Allen MD 17:15. Assessment and Plan - Time spent with patient Time spent with patient: Greater than 30 minutes (1) Acute exacerbation of chronic obstructive airways disease Status: Acute Assessment and plan: This has improved since admission. Patient does still have some wheezing with increased expiratory phase. Continue current plan of care. She does have an appointment Dr. Aaron Rawls next month for establishment is up a new patient. If it deemed appropriate having him see the patient while she is here would be a consideration. Current Visit: Yes (2) Atypical chest pain Status: Acute Assessment and plan: She has had a recent negative cardiac workup. She does have some significant reflux, but this has been doing fairly well with Protonix. She is for evaluation by upper endoscopy tomorrow. Current Visit: Yes (3) Bigeminy Status: Acute Assessment and plan: History of nonsustained bigeminy and frequent PVCs. This has been nonsymptomatic in the past. Beta-conrad is not recommended due to known lung disease. With her negative workup this is certainly benign. Current Visit: Yes (4) Frequent PVCs Status: Acute Assessment and plan: Stable. This is also benign with negative workup. Current Visit: Yes (5) GERD (gastroesophageal reflux disease) Status: Acute Assessment and plan: Continue PPI. Current Visit: Yes Cardiology - PN: Subj Interval history: PRIMARY MENTAL HEALTH DIRECTOR: DR. ALLEN SUMMARY: Ms. Tucker is a 62-year-old white with risk factors significant for: Hypertension, former tobacco use. Past medical history includes COPD, bipolar disorder, seizure disorder, and patient quit smoking 4-1/2 years ago after smoking for 40 years. Patient was previously seen by Dr. Allen in clinic with complaints of chest pain and shortness of breath 2 years, and her cardiac workup was negative. Echocardiogram with LV function preserved and EF 60%. Myocardial perfusion SPECT scan with normal perfusion and no defect noted. 40 hour Holter monitor revealed frequent PVCs and rare nonsustained bigeminy. Patient was referred to Dr. Cristina for GI workup if no history of fairly severe reflux. Patient was admitted to the hospital on April 05 with with shortness of breath. Patient was admitted to the hospital for COPD exacerbation. Cardiology has been asked to see due to patient's history of PVCs. Gastroenterology has also evaluated. March: Patient seen and examined. Reports that she feels better than she did upon admission. She is still having some wheezing, and reports that she is unable to cough anything up. No chest pain. No overt shortness of breath at this time. She is completing nebulizer treatment at this time. Oxygen saturations mid to upper 90s on 2 L/NC blood pressure is overall stable with SBP ranging 120 -140 mmHg. Pulse rate slightly tachycardic at times but no higher than 110 bpm. Labs reviewed this morning potassium 3.9, magnesium 2.3 per creatinine 0.9 with GFR 56. She is scheduled for upper endoscopy tomorrow per Dr. Cristina. Her PVCs have been chronic and benign. She has a negative cardiac workup. Her big issue has been recurrent pulmonary issues that have probably been overall progressive. The patient has an appointment with Dr. Aaron Rawls next month. If she continues to have these recurrent episodes here in the hospital consulting him may be appropriate at this time so he can go ahead and see her. Cardiac gregory though she continues to be stable. Exam (Progress Note) - Constitutional Vitals: Period Temp Pulse Resp BP Sys/Heath Pulse Ox Last 24 Hr 97.3 F-99.2 F 50-112 16-20 111-145/54-90 92-99 Exam: General: Present: Appears Well, No Apparent Distress. Normal weight. HEENT: Present: PERRL, Mucus Membranes Moist Neck: Present: Supple Neck, Midline Trachea, No Bruit Cardiac: Present: Regular Rhythm (Bigeminy), No Murmur, Tachycardia. No JVD. Lungs: Present: Wheezes, with increased expiratory phase. Oxygen via nasal cannula. Neuro: Present: Alert, oriented 3, grossly intact. Absent: No resting tremor, Essential Tremor. Abdomen: Present: Soft, Active Bowel Sounds, epigastric tenderness. 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 Absent: Suspicious Lesions, Ulceration Musculoskeletal: Present: No Pain, Normal Range of Motion Gait: Present: Normal Gait Extremities: Present: Normal Gait, No Edema, Normal Upper Extr. Pulses, Normal Lower Extr. Pulses. No edema. Psych: Patient is not anxious or depressed. Result/EKG - Labs CBC & BMP: 04/07/17 03:54 06/12/17 06:04 Lab Results: I have reviewed the past 24 hour labs Labs: Laboratory Results - last 24 hr 04/08/17 06:04 Sodium 140 Potassium 3.9 Chloride 104 Carbon Dioxide 25 Anion Gap 14.9 BUN 18 Creatinine 0.90 GFR Calculation 56 BUN/Creatinine Ratio 20.00 Glucose 154 H Calculated Osmolality 283.4 Calcium 9.6 Magnesium 2.3 - Diagnostic Findings Procedure: Chest x-ray: image reviewed by me, report reviewed by me - EKG EKG results: interpreted by me, no acute changes EKG shows: sinus rhythm (Frequent PVCs, nonsustained bigeminy.) Specialty Discharge - Follow Up or Referrals Follow up with: Saturnino Allen MD [Physician] - I, Saturnino Allen MD, personally performed the services described in this documentation, ascribed by Yaneli Garcia RN in my presence, and it is both accurate and complete 716 .
[2017-04-08] MEDS: LITHIUM 300 MG CAPSULE PO SCH (22:32)
[2017-04-09] MEDS: methylPREDNISolone SOD SUC 125 MG/2 ML VIAL IV SCH ×3 (02:08→18:02)
[2017-04-09] MEDS: ALBUTEROL/IPRATROPIUM 3 ML NEB RESP TX SCH ×5 (03:28→20:08)
[2017-04-09] MEDS ORDERED: PROPOFOL 200 MG/20 ML VIAL IV ONE (08:00)
[2017-04-09] MEDS ORDERED: LIDOCAINE 1% 5 ML VIAL ONE (08:00)
--- NOTE | 2017-04-09 08:17 | Anesthesia Post-Op ---
Anesthesia Post OP - Post Ansesthetic Evaluation Patient seen in post op: Yes Resp: within normal limits CV: within normal limits Mental: within normal limits Temp: within normal limits [id number]: within normal limits Nausea and Vomiting: within normal limits Pain: within normal limits
--- NOTE | 2017-04-09 08:21 | Operative Note ---
Date of procedure: 04/09/17 Pre-op diagnosis: Atypical chest pain, wheezing Post-op diagnosis: other (Distal esophageal erythema, probable gastroparesis, mild gastritis) Procedure: PROCEDURE: Esophagogastroduodenoscopy (EGD) with cold biopsy for pathology REFERRING PHYSICIAN: Kaitlyn Begum MD INDICATIONS: Reflux with atypical chest pain, question as to whether or not this is feeding into the patient's cardiac issues or possibly even wheezing due to aspiration of acid, better with Protonix twice daily the prior H&P was reviewed and interrim changes are as noted: No change from GI consultation on 04/04/17 (as an outpatient). ENDOSCOPIST: Vikas Cristina MD ENDOSCOPE: Olympus Video 100 System upper endoscope ASA CLASS: 3 EXAM: CV: regular rate and rhythm respiratory: Clear without wheezes abdominal: active bowel sounds MEDICATION: Per nursing anesthesia protocol, see their notes PROCEDURE: After discussion of the potential risks and benefits of upper endoscopy, the informed consent was obtained. The patient was then placed in the left lateral decubitus position where sedation was achieved as noted above. Esophageal intubation was performed without difficulty, and the endoscope was advanced through the esophagus, stomach and duodenum. A slow withdrawal was then performed with retroflexion in the stomach for careful inspection of the incisura angularis, fundus and cardia. The scope was then returned to a neutral position and withdrawn through the esophagus. The patient tolerated the procedure well and without complication. BIOPSIES: Gastric antrum/body PHOTOGRAPHS: Obtained FINDINGS: Hypopharynx and Larynx: Normal Esohagoscopy Upper and middle thirds: Normal Lower third mild erythema distally 2 cm but no gross evidence of erosive esophagitis, biopsies obtained Esophogastric junctions: No gross evidence of erosion, stricturing, or Rizzo's Gastroscopy: Cardia/Fundus: 2 cm hiatal hernia, retained food in the stomach consistent with mild to moderate gastroparesis Body: Retained food in the stomach consistent with mild to moderate gastroparesis, single gastric polyp biopsied, J-shaped stomach Antrum and pylorus mild diffuse gastritis, biopsied Duodenoscopy: Bulb retained food but no evidence of duodenitis Second and third portions: Normal IMPRESSION: This patient has mild erythema distally in the esophagus, but no gross evidence of erosions or severe esophagitis, biopsies obtained to rule out eosinophilic esophagitis. 2 cm hiatal hernia, and moderate amount of retained food in the stomach indicative of some underlying gastroparesis. Mild gastritis and a gastric polyp seen as well. RECOMMENDATIONS: Follow up for biopsy results in 1-2 weeks by phone [phone] Continue anti-gastroesophageal reflux measures (avoid carbonated and acidic beverages, avoid eating within 2 hours of bedtime, avoid tight fitting clothing , and elevate the front bed posts 6 inches prior to sleeping. Gastric emptying study tomorrow Await biopsy results. Restart feeding today with cardiac diet. Anesthesia: MAC Surgeon / Physician: Vikas Cristina Estimated blood loss: minimal Specimens: other (Gastric antrum/body, distal esophagus) Condition: stable Disposition: post procedure unit ([facility] Suite) Results - Labs CBC & BMP: 04/07/17 03:54 04/08/17 06:04 Discharge Plan - Discharge Medications No Action Tiotropium Inhalation [Spiriva Handihaler] 18 mcg DAILY Promethazine/Dextromethorphan [Promethazine-Dm Syrup] 5 - 10 mls PO Q6HR PRN PRN Reason: Cough OXcarbazepine [Oxcarbazepine] 600 mg PO DAILY NIFEdipine XL TAB [Procardia Xl] 60 mg PO DAILY Trazodone HCl [Trazodone HCl] 150 mg PO BEDTIME [place] Cap 300 mg PO BEDTIME - Follow Up or Referral Follow Up: Saturnino Ceja MD [Physician] - - Forms/Instructions
--- NOTE | 2017-04-09 08:41 | Gastrointestinal Progress Note ---
Assessment and Plan (1) Atypical chest pain Status: Acute Assessment and plan: Patient was feeling some previous atypical chest pain when I saw her in the office on 04/04/17 along with fairly severe reflux. Sometimes her chest pain will be as high as 10 out of 10 with a slight burning quality to it. She had been on Dexilant at some point in the past but has been recently transitioned back to Nexium 40 mg daily. Here in the hospital, she is getting Protonix twice daily and she continues to do well with this will likely give her this medication instead. We will be performing upper endoscopy tomorrow in order to assess the degree of damage to the esophagus and look for evidence of Rizzo's esophagus as well as gastritis. She is not having dysphagia and does not need to be dilated. If she continues to have issues despite a normal-appearing EGD we may want to either check her gastric emptying or perform 48 hour pH monitoring study to look for complete suppression. The patient was advised of potential risks of the procedure which include but are not limited to: Leading, infection, perforation, cardiac and pulmonary compromise. 04/09/17--the patient's upper endoscopy demonstrates some mild erythema in the distal esophagus, biopsies were taken to rule out eosinophilic esophagitis. There was a fair amount of retained food in the stomach suspicious for gastroparesis and this may be part of the reason why she is having ongoing epigastric pain and worsening reflux symptoms. We will check her with a gastric emptying study tomorrow to confirm this and to see if she would benefit from Reglan. We may or may not do a colonoscopy this admission depending on how she does with the procedure tomorrow. If she stays in the hospital longer we can certainly accomplish this as an inpatient possibly . The gastric emptying study tomorrow is the more important test and this needs to be with solid food. Current Visit: Yes (2) GERD (gastroesophageal reflux disease) Status: Acute Assessment and plan: Patient is being covered with Protonix 40 mg twice daily for acid suppression, this appears to be doing quite well for the patient. 04/09/17--Likely worsened by the underlying gastroparesis. Will need a gastric emptying study to confirm findings and quantify the degree of this disease. Current Visit: Yes Gastroenterology - PN: Subj Interval history: No new complaints except for her wheezing which appears to be slightly improved. Exam (Progress Note) - Constitutional Vitals: Period Temp Pulse Resp BP Sys/Heath Pulse Ox Last 24 Hr 96.0 F-98.2 F 66-117 16-28 109-142/55-90 92-99 General appearance: no acute distress - Head Head exam: Present: normocephalic - Eye Eye exam: Present: EOMI Pupils: Present: YESY - Respiratory Respiratory exam: Present: wheezes. Absent: accessory muscle use, chest wall tenderness, decreased breath sounds Results - Labs CBC & BMP: 04/07/17 03:54 04/08/17 06:04 Specialty Discharge - Follow Up or Referrals Follow up with: Saturnino Ceja MD [Physician] -
--- NOTE | 2017-04-09 09:20 | Anesthesia Post-Op ---
Anesthesia Post OP - Post Ansesthetic Evaluation Patient seen in post op: Yes Resp: within normal limits CV: within normal limits Mental: within normal limits Temp: within normal limits [id number]: within normal limits Nausea and Vomiting: within normal limits Pain: within normal limits
[2017-04-09] MEDS: ENOXAPARIN 40 MG/0.4 ML SYRINGE SUBCUT SCH (10:58)
[2017-04-09] MEDS: PANTOPRAZOLE 40 MG TABLET PO SCH ×2 (11:01→21:24)
[2017-04-09] MEDS: OXcarbazepine 300 MG TABLET PO SCH (11:01)
[2017-04-09] MEDS: BUDESONIDE/FORMOTEROL 160-4.5 INHALER 6 GM INH SCH ×2 (11:02→21:25)
[2017-04-09] MEDS: MONTELUKAST 10 MG TABLET PO SCH (11:02)
[2017-04-09] MEDS: FUROSEMIDE 40 MG/4 ML VIAL IV SCH (11:03)
[2017-04-09] MEDS: AZITHROMYCIN INJ 500 MG in SODIUM CHLORIDE 0.9% 250 ML IV SCH (11:24)
--- NOTE | 2017-04-09 16:20 | Hospitalist Progress Note ---
Assessment and Plan (1) Bigeminy Status: Acute Assessment and plan: asymptomatic; keep K at least 4 and mag at least 2; being followed by cardiology ; avoid martha blockers Current Visit: Yes (2) GERD (gastroesophageal reflux disease) Status: Acute Assessment and plan: seen by GI; EGD showed distal esophagus erythema and retained food in the stomach. Suspicious for gastroparesis. Patient will undergo gastric emptying study tomorrow Current Visit: Yes (3) Acute exacerbation of chronic obstructive airways disease Status: Acute Assessment and plan: continue current regimen; await pulmonary recommendations Current Visit: Yes Hospitalist: Subjective Interval history: Patient states that her breathing is about the same. She has no further complaints. She had an EGD today, and it showed erythema in the distal esophagus and retained food. Plan is for a gastric emptying study for evaluation of gastroparesis. Exam - Constitutional Vitals: Period Temp Pulse Resp BP Sys/Heath Pulse Ox Last 24 Hr 96.0 F-98.2 F 66-119 16-28 109-150/55-88 93-99 General appearance: mild distress (tachypneic) - Eye Eye exam: Present: EOMI Pupils: Present: YESY - Respiratory Respiratory exam: Present: decreased breath sounds, prolonged expiratory phase, wheezes - Cardiovascular Cardiovascular exam: Present: regular rate and rhythm - GI/Abdominal GI/Abdominal exam: Present: normal bowel sounds - Extremities Exam Extremities exam: Present: edema (no c/c/e) - Neurological Exam Neurological exam: Present: oriented X3 Results - Labs CBC & BMP: 04/07/17 03:54 04/08/17 06:04 Specialty Discharge - Follow Up or Referrals Follow up with: Saturnino Ceja MD [Physician] -
--- NOTE | 2017-04-09 17:45 | Cardiology Progress Note ---
Jose Henry Vanessa, RN, am scribing for, and in the presence of, Saturnino Allen MD 17:44. Assessment and Plan - Time spent with patient Time spent with patient: Greater than 30 minutes (1) Acute exacerbation of chronic obstructive airways disease Status: Acute Assessment and plan: This has improved since admission. She does have some wheezing and increased expiratory phase. Continue as present. She has been previously scheduled to see Dr. Rawls in the next month for new patient establishment. May be worthwhile to have him see her during hospitalization if deemed appropriate. Current Visit: Yes (2) Atypical chest pain Status: Acute Assessment and plan: She has had a recent negative cardiac workup. She does have some significant reflux, but this has been doing fairly well with Protonix. She is now post upper endoscopy, and she is for gastric emptying study tomorrow. Current Visit: Yes (3) Bigeminy Status: Acute Assessment and plan: History of nonsustained bigeminy and frequent PVCs. This has been nonsymptomatic in the past. Beta-conrad is not recommended due to known lung disease. This is most certainly benign as she has had recent negative cardiac workup. Also today's exam reveals no ectopy. Current Visit: Yes (4) Frequent PVCs Status: Acute Assessment and plan: Stable. This is known to be benign with recent negative cardiac workup. Current Visit: Yes (5) GERD (gastroesophageal reflux disease) Status: Acute Assessment and plan: Continue PPI. Current Visit: Yes Cardiology - PN: Subj Interval history: PRIMARY MEDICAL STENOGRAPHER: DR. ALLEN SUMMARY: Ms. Tucker is a 62-year-old white with risk factors significant for: Hypertension, former tobacco use. Past medical history includes COPD, bipolar disorder, seizure disorder, and patient quit smoking 4-1/2 years ago after smoking for 40 years. Patient was previously seen by Dr. Allen in clinic with complaints of chest pain and shortness of breath 2 years, and her cardiac workup was negative. Echocardiogram with LV function preserved and EF 60%. Myocardial perfusion SPECT scan with normal perfusion and no defect noted. 40 hour Holter monitor revealed frequent PVCs and rare nonsustained bigeminy. Patient was referred to Dr. Cristina for GI workup if no history of fairly severe reflux. Patient was admitted to the hospital on April 05 with with shortness of breath. Patient was admitted to the hospital for COPD exacerbation. Cardiology has been asked to see due to patient's history of PVCs. Gastroenterology, and she has undergone EGD this morning. March: Vitals stable overnight with SBP 130-150 mmHg. Chest pain overnight. No acute shortness of breath. Wheezing appears to have improved since previous exam. She is post EGD this morning per Dr. Cristina, and scope revealed mild gastritis, gastric polyp, mild erythema of distal esophagus but no gross evidence of erosion or severe esophagitis. She is planned for gastric emptying study tomorrow. Overall, patient is doing well from cardiac standpoint. She remains stable. There is really not much left for us to do at this time. We will check him tomorrow and is stable we may sign off. Exam (Progress Note) - Constitutional Vitals: Period Temp Pulse Resp BP Sys/Heath Pulse Ox Last 24 Hr 96.0 F-98.2 F 66-117 16-28 109-150/55-88 93-99 Exam: General: Present: Appears Well, No Apparent Distress. Normal weight. HEENT: Present: PERRL, Mucus Membranes Moist Neck: Present: Supple Neck, Midline Trachea, No Bruit Cardiac: Present: Regular Rhythm (Bigeminy), No Murmur, Tachycardia. No JVD. Lungs: Present: Wheezes (inspirational/expirational), Oxygen via nasal cannula. Neuro: Present: Alert, oriented 3, grossly intact. Absent: No resting tremor, Essential Tremor. Abdomen: Present: Soft, Active Bowel Sounds, epigastric tenderness. Absent: Distended, mass Skin: Present: Rash (on back, she has been seeing a button spindler), warm, dry. Absent: Suspicious Lesions, Ulceration Musculoskeletal: Present: No Pain, Normal Range of Motion Gait: Present: Normal Gait Extremities: Present: Normal Gait, No Edema, Normal Upper Extr. Pulses, Normal Lower Extr. Pulses. No edema. Psych: Patient is not anxious or depressed. Result/EKG - Labs CBC & BMP: 04/07/17 03:54 04/08/17 06:04 Lab Results: I have reviewed the past 24 hour labs - EKG EKG results: interpreted by me, no acute changes Specialty Discharge - Follow Up or Referrals Follow up with: Saturnino Allen MD [Physician] - IMarcial John Timothy, MD, personally performed the services described in this documentation, ascribed by Yaneli Garcia RN in my presence, and it is both accurate and complete 744 .
[2017-04-09] MEDS: LITHIUM 300 MG CAPSULE PO SCH (21:24)
[2017-04-10] MEDS: methylPREDNISolone SOD SUC 125 MG/2 ML VIAL IV SCH ×2 (02:07→09:51)
[2017-04-10 02:59] LABS: Basophils % 0.1 % (0.0-0.8); Hematocrit 37.8 VOL% (35.7-47.0); Hemoglobin 13.2 GM/DL (12.0-16.0); Immature Granulocytes % 0.7 %; Immature Granulocytes Absolute 0.09 #; Lymphocytes # 0.7 10*3/uL (1.4-4.0); Lymphocytes % 5.3 % (21.3-54.2); Mean Corpuscular HGB Conc 34.9 GM/DL (32-36); Mean Corpuscular Hemoglobin 31 PG (27-34); Mean Corpuscular Volume 88.5 FL (87-102); Mean Platelet Volume 9.2 FL (9.6-12.0); Monocytes # 0.7 10*3/uL (0.11-0.8); Monocytes % 5.3 % (1.7-12.7); Neutrophils # 11.1 10*3/uL (1.4-7.4); Neutrophils % 88.6 % (38.7-73.9); Platelet Count 255 T/CUMM (130-400); Red Blood Count 4.27 MC/CUMM (3.8-5.5); Red Cell Distribution Width 11.9 % (9.3-17.3); White Blood Count 12.5 T/CUMM (4-12)
[2017-04-10 03:23] LABS: Calcium 9.2 MG/DL (8.5-10.1); Magnesium 2.3 MG/DL (1.8-2.4); Osmolality,Calculated 282.4 MOS/KG (273-304); Potassium 3.4 MMOL/L (3.5-5.1)
[2017-04-10] MEDS: ALBUTEROL/IPRATROPIUM 3 ML NEB RESP TX SCH ×6 (03:40→20:22)
--- NOTE | 2017-04-10 06:53 | Cardiology Progress Note ---
Assessment and Plan (1) Acute exacerbation of chronic obstructive airways disease Status: Acute Assessment and plan: This is improving slowly. She has an appointment with Dr. Aaron Rawls for next month. Current Visit: Yes (2) Atypical chest pain Status: Resolved Assessment and plan: She has had no further chest pain. Her cardiac evaluation recently was negative including that for ischemia. Current Visit: Yes (3) Bigeminy Status: Acute Assessment and plan: She has a chronic recurrent history of this it seems to be exacerbated with periods of stress. With her acute pulmonary exacerbation this probably has caused more issues. Current Visit: Yes (4) Frequent PVCs Status: Acute Assessment and plan: Stable. This is a chronic recurrent issue and exacerbated typically by stress or COPD exacerbations. At present is stable. Current Visit: Yes (5) GERD (gastroesophageal reflux disease) Status: Acute Assessment and plan: Continue PPI. She has a GI evaluation ongoing for her GI symptoms. Current Visit: Yes Cardiology - PN: Subj Interval history: Patient had a fair night. She denies any cardiac symptoms. She has had no chest pain palpitations. She states that she just not comfortable here in the hospital but nothing specific. Still having some wheezing but seems to be generally better. Her GI evaluation is continuing. Heart rates have been stable since her pulmonary exacerbation has improved. Heart rates have been stable. Patient is stable from a cardiac standpoint. We will officially sign off and be available if needed. We will check with the patient chart periodically. Exam (Progress Note) - Constitutional Vitals: Period Temp Pulse Resp BP Sys/Heath Pulse Ox Last 24 Hr 96.0 F-97.9 F 55-119 16-24 109-155/59-88 93-100 Exam: General: Present: Appears Well, No Apparent Distress. Normal weight. She is sitting up in bed reading. HEENT: Present: PERRL, Mucus Membranes Moist Neck: Present: Supple Neck, Midline Trachea, No Bruit Cardiac: Present: Regular Rhythm (Bigeminy), No Murmur, Tachycardia. No JVD. Lungs: Present: Wheezes (inspirational/expirational), has slight increased expiratory phase. Oxygen via nasal cannula. Neuro: Present: Alert, oriented 3, grossly intact. Absent: No resting tremor, Essential Tremor. Abdomen: Present: Soft, Active Bowel Sounds, epigastric tenderness. Absent: Distended, mass Skin: Present: Rash (on back, she has been seeing a watershed program manager), warm, dry. Absent: Suspicious Lesions, Ulceration Musculoskeletal: Present: No Pain, Normal Range of Motion Gait: Present: Normal Gait Extremities: Present: Normal Gait, No Edema, Normal Upper Extr. Pulses, Normal Lower Extr. Pulses. No edema. Psych: Patient is not anxious or depressed. Result/EKG - Labs CBC & BMP: 04/10/17 02:14 04/10/17 02:14 Lab Results: I have reviewed the past 24 hour labs Labs: Laboratory Results - last 24 hr 04/10/17 04/10/17 02:14 02:14 WBC 12.5 H D RBC 4.27 Hgb 13.2 Hct 37.8 MCV 88.5 MCH 31 MCHC 34.9 RDW 11.9 Plt Count 255 D MPV 9.2 L Neut % (Auto) 88.6 H Lymph % (Auto) 5.3 L [place] % (Auto) 5.3 Eos % (Auto) 0.0 Baso % (Auto) 0.1 Neut # (Auto) 11.1 H Lymph # (Auto) 0.7 L [place] # (Auto) 0.7 Eos # (Auto) 0.0 Baso # (Auto) 0.0 Immature Gran % 0.7 Nucleated RBC % 0.0 Immature Gran # 0.09 Nucleated RBCs # 0.00 Sodium 140 Potassium 3.4 L Chloride 103 Carbon Dioxide 27 Anion Gap 13.4 BUN 19 H Creatinine 0.70 GFR Calculation 77 BUN/Creatinine Ratio 27.00 H Glucose 136 H Calculated Osmolality 282.4 Calcium 9.2 Magnesium 2.3 Specialty Discharge - Follow Up or Referrals Follow up with: Saturnino Ceja MD [Physician] -
[2017-04-10] MEDS: PANTOPRAZOLE 40 MG TABLET PO SCH ×2 (08:37→20:39)
[2017-04-10] MEDS: OXcarbazepine 300 MG TABLET PO SCH ×2 (08:38→15:27)
[2017-04-10] MEDS: MONTELUKAST 10 MG TABLET PO SCH ×2 (08:38→15:26)
[2017-04-10] MEDS: FUROSEMIDE 40 MG/4 ML VIAL IV SCH ×2 (09:21→15:27)
[2017-04-10] MEDS: ENOXAPARIN 40 MG/0.4 ML SYRINGE SUBCUT SCH (09:22)
[2017-04-10] MEDS: BUDESONIDE/FORMOTEROL 160-4.5 INHALER 6 GM INH SCH ×3 (09:22→20:37)
[2017-04-10] MEDS: AZITHROMYCIN INJ 500 MG in SODIUM CHLORIDE 0.9% 250 ML IV SCH ×2 (09:22→09:52)
--- NOTE | 2017-04-10 11:19 | Pathology Report from [facility] ---
[facility] – [place] ACCESSION # : [id number] PATIENT NAME : Gracie Vasquez ORDERING DR : Vikas Cristina MD CLINICAL HX: GP & reflux POST-OP DX: Same SPECIMEN INFO: #1 VIVIANE & gastric polyp #2 BX distal esophagus GROSS DESCRIPTION: Received in formalin in two parts labeled:#1 GRACIE VASQUEZ & #1 is an aggregate of pink leigh mucosal tissue measuring 0.6 x 0.6 cm submitted in cassette #1.#2 GRACIE VASQUEZ & #2 is an aggregate of white brown mucosal tissue measuring 0.5 x 0.4 cm submitted in cassette #2. DIAGNOSIS FOR GRACIE VASQUEZ: #1 GASTRIC ANTRAL BIOPSY: Chronic superficial gastritis. No evidence of malignancy. Special stain for H. pylori-like organisms is NEGATIVE. No evidence of polyp in this biopsy specimen.#2 DISTAL ESOPHAGEAL BIOPSY: Benign squamous esophageal mucosa with changes consistent with reflux esophagitis. No evidence of eosinophilic esophagitis. No glandular epithelium identified. COLLECTED DATE: 04/09/2017 [facility] REPORT DATE: 04/10/2017 ELECTRONICALLY SIGNED BY: James Caballero III, M.D. 04/10/2017 - 9:51:06 RUTH
--- NOTE | 2017-04-10 11:22 | Nuclear Medicine Report ---
Exam: NM gastric emptying study Date: 04/10/2017 4:00 AM Comparison: None Indication: EGD with gastroparesis Technique:[Patient given 500 uCi technetium 99m sulfur colloid orally in scrambled eggs. Gastric empty scans were obtained.] Findings: T1/2 equals 98.01 minutes. At 86 minutes, there is -6% gastric emptying. At 143 minutes, there is 85% gastric emptying. At 180 minutes, there is 96% gastric emptying. Impression: Initial minimally delayed gastric emptying with T1/2 equals 98.01 minutes. However at 180 minutes, there is 96% gastric imaging. PROCEDURE INTERPRETED AT [facility] DEPARTMENT OF RADIOLOGY Final Report Signed by: Dr. Ana Maria Sahu
--- NOTE | 2017-04-10 12:28 | Hospitalist Progress Note ---
Assessment and Plan (1) Acute exacerbation of chronic obstructive airways disease Status: Acute Assessment and plan: Patient states she feels better. Plan continue current regimen; await pulmonary recommendations Current Visit: Yes (2) GERD (gastroesophageal reflux disease) Status: Acute Assessment and plan: EGD showed distal esophagus erythema and retained food in the stomach. Suspicious for gastroparesis. Patient is currently undergoing gastric emptying study. Current Visit: Yes (3) Bigeminy Status: Acute Assessment and plan: asymptomatic; keep K at least 4 and mag at least 2; being followed by cardiology ; avoid martha blockers Current Visit: Yes Hospitalist: Subjective Interval history: Patient seen, no events overnight..She has started her gastric emptying study this am. Exam - Constitutional Vitals: Period Temp Pulse Resp BP Sys/Heath Pulse Ox Last 24 Hr 97.1 F-97.9 F 55-88 16-24 111-155/59-80 93-100 General appearance: no acute distress - Head Head exam: Present: normal inspection - Eye Eye exam: Present: EOMI - Respiratory Respiratory exam: Present: rales, rhonchi - Cardiovascular Cardiovascular exam: Present: regular rate and rhythm - GI/Abdominal GI/Abdominal exam: Present: normal bowel sounds - Extremities Exam Extremities exam: Present: normal inspection Results - Labs CBC & BMP: 04/10/17 02:14 04/10/17 02:14 Lab Results: I have reviewed the past 24 hour labs Specialty Discharge - Follow Up or Referrals Follow up with: Saturnino Ceja MD [Physician] -
--- NOTE | 2017-04-10 14:10 | Gastrointestinal Progress Note ---
Assessment and Plan (1) Atypical chest pain Status: Resolved Assessment and plan: Patient was feeling some previous atypical chest pain when I saw her in the office on 04/04/17 along with fairly severe reflux. Sometimes her chest pain will be as high as 10 out of 10 with a slight burning quality to it. She had been on Dexilant at some point in the past but has been recently transitioned back to Nexium 40 mg daily. Here in the hospital, she is getting Protonix twice daily and she continues to do well with this will likely give her this medication instead. We will be performing upper endoscopy tomorrow in order to assess the degree of damage to the esophagus and look for evidence of Rizzo's esophagus as well as gastritis. She is not having dysphagia and does not need to be dilated. If she continues to have issues despite a normal-appearing EGD we may want to either check her gastric emptying or perform 48 hour pH monitoring study to look for complete suppression. The patient was advised of potential risks of the procedure which include but are not limited to: Leading, infection, perforation, cardiac and pulmonary compromise. 04/09/17--the patient's upper endoscopy demonstrates some mild erythema in the distal esophagus, biopsies were taken to rule out eosinophilic esophagitis. There was a fair amount of retained food in the stomach suspicious for gastroparesis and this may be part of the reason why she is having ongoing epigastric pain and worsening reflux symptoms. We will check her with a gastric emptying study tomorrow to confirm this and to see if she would benefit from Reglan. We may or may not do a colonoscopy this admission depending on how she does with the procedure tomorrow. If she stays in the hospital longer we can certainly accomplish this as an inpatient possibly . The gastric emptying study tomorrow is the more important test and this needs to be with solid food. 04/10/17--gastric emptying study shows a minimal delay with normal being 90 minutes and this patient demonstrating T1 half emptying time of 98 minutes. We will try her on a low-dose of Reglan at 5 mL (5 mg) q. before meals and nightly. A prescription of this was left in the front of the chart should the patient do well and is able to be discharged tomorrow. We need to watch her closely to see if she develops any evidence of tardive dyskinesia and discontinue the medication if this does occur. We will consider doing colonoscopy as an outpatient if her hematocrit remains decreased in another 4-6 weeks. She appears to be doing better with her atypical chest pain on the twice daily Protonix. She is a prescription that has already been filled at home from [facility] and needs to start this when she finishes with her hospitalization. Current Visit: Yes (2) GERD (gastroesophageal reflux disease) Status: Acute Assessment and plan: Patient is being covered with Protonix 40 mg twice daily for acid suppression, this appears to be doing quite well for the patient. 04/09/17--Likely worsened by the underlying gastroparesis. Will need a gastric emptying study to confirm findings and quantify the degree of this disease. 04/10/17--gastric emptying is slightly prolonged. Patient does have some erythema, biopsies performed failed to show any eosinophilic esophagitis and the biopsies in the stomach wall showing gastritis do not show any Helicobacter pylori. She is safe to stay on twice daily Protonix versus Nexium prior to suppertime each night. She can be discharged from my standpoint. Current Visit: Yes Gastroenterology - PN: Subj Interval history: The patient just finished her gastric emptying study and is laying in bed quite hungry. She is asked me to be stat restart her diet. The gastric emptying study is back and demonstrates a delay with T1 half emptying time of 98.01 minutes this is slightly prolonged. She may benefit from a small dose of Reglan. I will go ahead and initiate this. Exam (Progress Note) - Constitutional Vitals: Period Temp Pulse Resp BP Sys/Heath Pulse Ox Last 24 Hr 97.1 F-97.9 F 55-88 16-24 111-155/59-80 93-100 - Eye Eye exam: Present: EOMI Pupils: Present: YESY - Neck Neck exam: Present: normal inspection - Respiratory Respiratory exam: Present: clear to auscultation bilaterally - Cardiovascular Cardiovascular exam: Present: regular rate and rhythm - GI/Abdominal GI/Abdominal exam: Present: normal bowel sounds, tenderness (Mild epigastric tenderness to deep palpation), soft. Absent: distended, guarding, rebound - Extremities Exam Extremities exam: Absent: edema - Neurological Exam Neurological exam: Present: alert, oriented X3 - Psychiatric Psychiatric exam: Present: normal affect, normal mood - Skin Skin exam: Present: warm Results - Labs CBC & BMP: 04/10/17 02:14 04/10/17 02:14 Specialty Discharge - Follow Up or Referrals Follow up with: Saturnino Ceja MD [Physician] -
--- NOTE | 2017-04-10 15:50 | Pulmonology Consult Note ---
Assessment and Plan (1) Acute exacerbation of chronic obstructive airways disease Status: Acute Assessment and plan: The patient comes in with an exacerbation of her COPD and is doing better now. She still has some wheezing and will need systemic steroids for little while. Will also try to increase her bronchodilator therapy. Current Visit: Yes (2) Frequent PVCs Status: Acute Assessment and plan: This is been evaluated by cardiology and is felt to be stable. Current Visit: Yes (3) GERD (gastroesophageal reflux disease) Status: Acute Assessment and plan: She had an EGD yesterday. She will continue with treatment. Current Visit: Yes History of Present Illness Chief complaint: Shortness of breath History of present illness: Ms. Shine is a 62 year old white female that came in last week with chest tightness and shortness of breath. She has been told that she had COPD for at least for 5 years. She quit smoking about that time. She had been followed in [place] and take some bronchodilators as needed. She has been using Spiriva fairly regularly. She has had a previous cardiac workup and has a normal ejection fraction and did not have signs of ischemia. She came in very short of breath and this is the first time that she has been admitted for COPD. She apparently was very tight with wheezing and coughing. Recently she did have PFTs and her FEV1 was 1.37 L. This is consistent with moderate COPD. Home Medications Medication Instructions Recorded Confirmed Type [place] Cap 300 mg PO BEDTIME 04/05/17 04/05/17 History NIFEdipine XL TAB [Procardia Xl] 60 mg PO DAILY 04/05/17 04/05/17 History OXcarbazepine [Oxcarbazepine] 600 mg PO DAILY 04/05/17 04/05/17 History Promethazine/Dextromethorphan 5 - 10 mls PO Q6HR PRN 04/05/17 04/05/17 History [Promethazine-Dm Syrup] Tiotropium Inhalation [Spiriva 18 mcg DAILY 04/05/17 04/05/17 History Handihaler] Trazodone HCl [Trazodone HCl] 150 mg PO BEDTIME 04/05/17 04/05/17 History Allergies Allergy/AdvReac Type Severity Reaction Status Date / Time Sulfa (Sulfonamide Allergy ITCHING Verified 04/05/17 03:16 Antibiotics) - Constitutional Constitutional: Present: fatigue. Absent: chills, fever(s), night sweats, weight loss - EENT Eyes: Present: requires corrective lense. Absent: loss of vision Ears: Absent: decreased hearing Nose, mouth and throat: Absent: dysphagia, headache(s), sinus pressure, sore throat - Cardiovascular Cardiovascular: Present: dyspnea. Absent: chest pain at rest, edema, orthopnea , palpitations - Respiratory Respiratory: Present: cough, dyspnea, wheezing. Absent: hemoptysis, pain on inspiration, change in phlegm color - Gastrointestinal Gastrointestinal: Absent: abdominal pain, change in bowel habits, dysphagia, heartburn, nausea, vomiting - Genitourinary Genitourinary: Absent: dysuria, hematuria, urinary frequency - Musculoskeletal Musculoskeletal: Absent: arthralgias, muscle weakness - Neurological Neurological: Present: dizziness. Absent: abnormal speech, focal weakness, paresthesias - Psychiatric Psychiatric: Present: anxiety Exam (Pulmonay) H&P - Constitutional Vitals: Period Temp Pulse Resp BP Sys/Heath Pulse Ox Last 24 Hr 97.1 F-97.9 F 55-88 15-24 111-155/59-80 93-100 General appearance: no acute distress (She looks reasonably comfortable at present.), under weight - Head Head exam: Present: normal inspection, normocephalic - Eye Eye exam: Present: EOMI. Absent: scleral icterus Pupils: Present: YESY - ENT ENT exam: Present: normal exam - Neck Neck exam: Present: normal inspection. Absent: lymphadenopathy, thyromegaly - Respiratory Respiratory exam: Present: prolonged expiratory phase, wheezes - Cardiovascular Cardiovascular exam: Present: regular rate and rhythm. Absent: gallop, systolic murmur - GI/Abdominal GI/Abdominal exam: Present: normal bowel sounds, soft. Absent: organomegaly, tenderness - Extremities Exam Extremities exam: Absent: calf tenderness, edema - Back Exam Back exam: Present: normal inspection - Neurological Exam Neurological exam: Present: alert, oriented X3. Absent: CN II-XII intact, motor sensory deficit - Psychiatric Psychiatric exam: Present: normal affect - Skin Skin exam: Present: warm, dry Medical,Surgical,& Family Hx - Medical History Psychological: History of: Psychiatric Problems (take lithuim) Neurology: History of: Seizures (7 years ago) Respiratory: History of: COPD - Surgical History Abdominal Surgeries: Surgical HX of: Cholecystectomy Reproductive Surgeries: Surgical HX of;: Breast Surgery (Breast augmentation), Hysterectomy - Family History Family History: Reports;: Family Cancer (Father), Family Diabetes, Family Heart Disease (2 brothers and a sister) - Social History Smoking Status: Former smoker Frequency of Alcohol Use: None Type of Drug Use: None Results - Labs CBC & BMP: 04/10/17 02:14 04/10/17 02:14 - Diagnostic Findings Procedure: Chest x-ray: image reviewed by me, report reviewed by me (Chest x- ray is consistent with COPD.) Specialty Discharge - Follow Up or Referrals Follow up with: Saturnino Ceja MD [Physician] -
[2017-04-10] MEDS: METOCLOPRAMIDE 10 MG/10 ML UDCUP PO SCH ×2 (17:34→20:38)
[2017-04-10] MEDS: methylPREDNISolone SOD SUC 40 MG/1 ML VIAL IV SCH ×2 (17:34→23:59)
[2017-04-10] MEDS: LITHIUM 300 MG CAPSULE PO SCH (20:39)
[2017-04-11] MEDS: ALBUTEROL/IPRATROPIUM 3 ML NEB RESP TX SCH ×4 (04:11→11:19)
--- NOTE | 2017-04-11 06:32 | Gastrointestinal Progress Note ---
Assessment and Plan (1) Atypical chest pain Status: Resolved Assessment and plan: Patient was feeling some previous atypical chest pain when I saw her in the office on 04/04/17 along with fairly severe reflux. Sometimes her chest pain will be as high as 10 out of 10 with a slight burning quality to it. She had been on Dexilant at some point in the past but has been recently transitioned back to Nexium 40 mg daily. Here in the hospital, she is getting Protonix twice daily and she continues to do well with this will likely give her this medication instead. We will be performing upper endoscopy tomorrow in order to assess the degree of damage to the esophagus and look for evidence of Rizzo's esophagus as well as gastritis. She is not having dysphagia and does not need to be dilated. If she continues to have issues despite a normal-appearing EGD we may want to either check her gastric emptying or perform 48 hour pH monitoring study to look for complete suppression. The patient was advised of potential risks of the procedure which include but are not limited to: Leading, infection, perforation, cardiac and pulmonary compromise. 04/09/17--the patient's upper endoscopy demonstrates some mild erythema in the distal esophagus, biopsies were taken to rule out eosinophilic esophagitis. There was a fair amount of retained food in the stomach suspicious for gastroparesis and this may be part of the reason why she is having ongoing epigastric pain and worsening reflux symptoms. We will check her with a gastric emptying study tomorrow to confirm this and to see if she would benefit from Reglan. We may or may not do a colonoscopy this admission depending on how she does with the procedure tomorrow. If she stays in the hospital longer we can certainly accomplish this as an inpatient possibly . The gastric emptying study tomorrow is the more important test and this needs to be with solid food. 04/10/17--gastric emptying study shows a minimal delay with normal being 90 minutes and this patient demonstrating T1 half emptying time of 98 minutes. We will try her on a low-dose of Reglan at 5 mL (5 mg) q. before meals and nightly. A prescription of this was left in the front of the chart should the patient do well and is able to be discharged tomorrow. We need to watch her closely to see if she develops any evidence of tardive dyskinesia and discontinue the medication if this does occur. We will consider doing colonoscopy as an outpatient if her hematocrit remains decreased in another 4-6 weeks. She appears to be doing better with her atypical chest pain on the twice daily Protonix. She is a prescription that has already been filled at home from [facility] and needs to start this when she finishes with her hospitalization. 04/11/17--Patient did well with her Reglan dosing. She is on 5 mg (5 mL) of the Reglan elixir twice daily, she can increase this to q. before meals and nightly at home as needed for bloating. This should help out with her nighttime reflux as well. I suspect it will help out with her food tolerance in addition. At this point the GI workup is complete, the prescription is located in the front of the chart and she is ready for discharge from my standpoint. Thank you for allowing me the opportunity to perform the procedure ordered on this patient and to see her in the hospital, I will sign off at this time. Current Visit: Yes (2) GERD (gastroesophageal reflux disease) Status: Acute Assessment and plan: Patient is being covered with Protonix 40 mg twice daily for acid suppression, this appears to be doing quite well for the patient. 04/09/17--Likely worsened by the underlying gastroparesis. Will need a gastric emptying study to confirm findings and quantify the degree of this disease. 04/10/17--gastric emptying is slightly prolonged. Patient does have some erythema, biopsies performed failed to show any eosinophilic esophagitis and the biopsies in the stomach wall showing gastritis do not show any Helicobacter pylori. She is safe to stay on twice daily Protonix versus Nexium prior to suppertime each night. She can be discharged from my standpoint. 04/11/17--Symptomatically improved-- she can certainly the hospital from my standpoint. Current Visit: Yes Gastroenterology - PN: Subj Interval history: Wheezing markedly improved, the patient had "a little twitching" with the Reglan when it first started but this has dissipated to a large extent. She felt like it did help out with her ability to tolerate the salad that she had for supper yesterday. Overall she feels less reflux and less bloating and I have written a prescription to take home with her for the Reglan. Exam (Progress Note) - Constitutional Vitals: Period Temp Pulse Resp BP Sys/Heath Pulse Ox Last 24 Hr 96.6 F-98.4 F 74-109 15-22 114-151/62-89 94-100 General appearance: no acute distress - Eye Eye exam: Present: EOMI - Respiratory Respiratory exam: Present: wheezes (These are a great deal less prominent than yesterday mostly in the lower mid lung saldaña). Absent: accessory muscle use, decreased breath sounds, rhonchi - Cardiovascular Cardiovascular exam: Present: regular rate and rhythm - GI/Abdominal GI/Abdominal exam: Present: normal bowel sounds, soft. Absent: distended, guarding, tenderness, rebound - Neurological Exam Neurological exam: Present: alert, oriented X3 - Psychiatric Psychiatric exam: Present: normal affect, normal mood - Skin Skin exam: Present: warm Results - Labs CBC & BMP: 04/10/17 02:14 04/10/17 02:14 Specialty Discharge - Follow Up or Referrals Follow up with: Saturnino Ceja MD [Physician] -
[2017-04-11 08:14] VITALS: BP 127/73
--- NOTE | 2017-04-11 09:00 | Pulmonology Progress Note ---
Pulmonary - PN: Subj Interval history: The patient is a 62-year-old white lady that has COPD. She came in with an exacerbation due to bronchitis and had considerable shortness of breath and wheezing. She is doing much better now. She is walking around and comfortable and feels like her breathing is better. She looks like she should have considerable reversible disease. Her PFTs recently only showed moderate COPD. Will let her go home on prednisone and will follow her up in the clinic. She will continue Symbicort and Spiriva for now. Exam (Progress Note) - Constitutional Vitals: Period Temp Pulse Resp BP Sys/Heath Pulse Ox Last 24 Hr 96.6 F-98.4 F 74-109 15-22 114-151/62-89 94-100 Exam: General appearance: no acute distress (She looks much better today and is breathing comfortably.), under weight - Head Head exam: Present: normal inspection, normocephalic - Eye Eye exam: Present: EOMI. Absent: scleral icterus Pupils: Present: YESY - ENT ENT exam: Present: normal exam - Neck Neck exam: Present: normal inspection. Absent: lymphadenopathy, thyromegaly - Respiratory Respiratory exam: Present: Patient has fair breath sounds in her lungs sound better with less wheezing. - Cardiovascular Cardiovascular exam: Present: regular rate and rhythm. Absent: gallop, systolic murmur - GI/Abdominal GI/Abdominal exam: Present: normal bowel sounds, soft. Absent: organomegaly, tenderness - Extremities Exam Extremities exam: Absent: calf tenderness, edema - Back Exam Back exam: Present: normal inspection - Neurological Exam Neurological exam: Present: alert, oriented X3. Absent: CN II-XII intact, motor sensory deficit - Psychiatric Psychiatric exam: Present: normal affect - Skin Skin exam: Present: warm, dry Results - Labs CBC & BMP: 04/10/17 02:14 04/10/17 02:14 Assessment and Plan (1) Acute exacerbation of chronic obstructive airways disease Status: Acute Assessment and plan: The patient comes in with an exacerbation of her COPD and is doing better now. Her shortness of breath is better and her wheezing is much better. She can go home today on tapering prednisone and oral antibiotics and continue her bronchodilator therapy. I will check her back in the office in a few weeks and see how she is doing. Current Visit: Yes (2) Frequent PVCs Status: Acute Assessment and plan: This is been evaluated by cardiology and is felt to be stable. Current Visit: Yes (3) GERD (gastroesophageal reflux disease) Status: Acute Assessment and plan: She had an EGD yesterday. She will continue with treatment. Her esophageal symptoms are better. Current Visit: Yes Specialty Discharge - Follow Up or Referrals Follow up with: Saturnino Ceja MD [Physician] -
[2017-04-11] MEDS: OXcarbazepine 300 MG TABLET PO SCH (09:03)
[2017-04-11] MEDS: FUROSEMIDE 40 MG/4 ML VIAL IV SCH (09:04)
[2017-04-11] MEDS: METOCLOPRAMIDE 10 MG/10 ML UDCUP PO SCH ×2 (09:04→11:38)
[2017-04-11] MEDS: PANTOPRAZOLE 40 MG TABLET PO SCH (09:04)
[2017-04-11] MEDS: MONTELUKAST 10 MG TABLET PO SCH (09:04)
[2017-04-11] MEDS: methylPREDNISolone SOD SUC 40 MG/1 ML VIAL IV SCH (09:08)
[2017-04-11] MEDS: BUDESONIDE/FORMOTEROL 160-4.5 INHALER 6 GM INH SCH (09:09)
--- NOTE | 2017-04-11 09:59 | Discharge Summary ---
<GayLucia yin - Last Filed: 04/11/17 09:48> Hospital Course - Hospital Course Hospital Course: Ms. Shine is a 62-year-old female with history of COPD's, bipolar disorder, seizure disorder, hypertension, and insomnia who was admitted by the hospitalist service on 04/05/2017 with shortness of breath and wheezing along with PVCs. She was started on steroids and breathing treatments. Cardiology was consulted. She had had a recent workup done by Dr. Ceja including a treadmill Cardiolite, echo, and Holter. These were unremarkable other than frequent bigeminy. They did start her on low-dose magnesium and potassium for her borderline low levels. Patient did improve and was asymptomatic. Dr. Ceja will like her to follow-up in clinic in a few weeks. Dr. Cristina from GI was also consulted. Patient had seen him in his office on 04/04/2017 with severe reflux. He had started her on Protonix twice daily. He had scheduled her for an EGD but he went ahead and schedule this for this hospital admission. Cardiology and hospitalist were concerned that her symptoms were due to her severe reflux. Patient underwent EGD on 1216 which demonstrated some mild erythema and biopsies were taken. He also found a lot of retained food in the stomach and was suspicious for gastroparesis. Gastric emptying study was done on 04/10/2017 and it showed a minimal delay. He did start her on a low dose of Reglan before meals and nightly. He has scheduled her for an outpatient colonoscopy in 4-[address] Rawls from pulmonary was also consulted and assisted with her moderate COPD exacerbation. He is discharging her on prednisone with a follow-up in his clinic in 1-2 weeks. Patient is to continue her Symbicort and Spiriva for now. Patient is doing better and ready for discharge. Her care was coordinated with Dr. Waddell the hospitalist, GI, pulmonary, cardiology, patient and nursing. Care coordination, chart review, and discharge paperwork all took approximately 46 minutes. Patient was seen this am, vitals are stable, will dc home today. - Time spent with patient Time with patient DS: Greater than 30 minutes Specialty Discharge - Follow Up or Referrals Follow up with: Saturnino Ceja MD [Physician] - Yaniv Rawls MD [Physician] - (2-3 week appt on DC) Discharge Plan - Discharge Data Disposition: Disch To Home/Self Care - Discharge Medications New Budesonide/Formoterol 160-4.5 [Symbicort 160-4.5] 2 puff INH BID #1 inhaler guaiFENesin ER TAB [Mucinex] 1,200 mg PO BID #30 tablet HYDROcodone/ACETAMIN 5-325 [[place] 5-325] 1 tablet PO Q4H PRN #20 tablet PRN Reason: Pain Mild (1-3) Montelukast Tab [Singulair Tab] 10 mg PO DAILY #30 tablet Pantoprazole Tab [Protonix Tab] 40 mg PO BID #60 tablet Azithromycin [Zithromax Tri-Gabriel] 500 mg PO DAILY #3 tablet Albuterol Neb [Proventil Neb] 2.5 mg RESP TX RT Q1H PRN #7 PRN Reason: Shortness Of Breath/Wheezing Albuterol/Ipratropium Neb [Duoneb] 3 ml RESP TX RT Q4H #7 Metoclopramide Liquid [Reglan Liquid] 5 mg PO ACHS #30 predniSONE TAB [PredniSONE] See Taper PO DAILY #7 tablet Continue Tiotropium Inhalation [Spiriva Handihaler] 18 mcg DAILY Promethazine/Dextromethorphan [Promethazine-Dm Syrup] 5 - 10 mls PO Q6HR PRN PRN Reason: Cough OXcarbazepine [Oxcarbazepine] 600 mg PO DAILY NIFEdipine XL TAB [Procardia Xl] 60 mg PO DAILY Trazodone HCl 150 mg PO BEDTIME [place] Cap 300 mg PO BEDTIME - Follow Up or Referral Follow Up: Saturnino Ceja MD [Physician] - Yaniv Rawls MD [Physician] - (2-3 week appt on DC) - Forms/Instructions Exam - Constitutional Vitals: Period Temp Pulse Resp BP Sys/Heath Pulse Ox Last 24 Hr 96.6 F-98.4 F 74-109 15-22 114-151/62-89 94-100 DS: Provider Date of admission: 04/05/17 04:26 Primary care physician: . No PCP Attending physician on admission: Saturnino Kessler MD Consults: 04/05/17 05:01 Consult to Case Mgmt/Social Srvs [CONS] Routine Reason for Case Mgmt/Social Srvs: Rehab Consult to Physician [CONS] Routine Comment: PVCs Consulting Provider: Andres Gómez When should Consulting Provider be notified: In am Person Notified: Norris Date Notified: 04/05/17 Time Notified: 08:10 04/05/17 05:34 Consult to Dietitian [CONS] Routine Reason for Dietitian: Dietary Consult 04/07/17 15:01 Consult to Physician [CONS] Routine Comment: exacerbation of gerd Consulting Provider: Vikas Cristina When should Consulting Provider be notified: In am Person Notified: DAVID Date Notified: 04/08/17 Time Notified: 09:23 04/08/17 10:31 Consult to Anesthesiology [CONS] Routine Consulting Provider: Reason for Anesthesiology: Pre-op Clearance 04/08/17 15:09 Consult to Physician [CONS] Routine Comment: COPD exacerbation Consulting Provider: Yaniv Rawls Consulting Provider Notified: No When should Consulting Provider be notified: Now Consult to Specialist Group: Hospitalist When should Consulting Provider be notified: Now Person Notified: Antonio Date Notified: 04/10/17 Time Notified: 14:08 Discharging clinician: VEGA Turk Expected date of discharge: 04/11/17 <Catia Waddell - Last Filed: 04/11/17 10:42> Hospital Course - Time spent with patient Time with patient DS: Greater than 30 minutes (time spent >35mins) Diagnosis - Discharge Diagnosis (1) Acute exacerbation of chronic obstructive airways disease Status: Acute (2) GERD (gastroesophageal reflux disease) Status: Acute (3) Bigeminy Status: Acute Discharge Plan - Discharge Data Condition at Discharge: Stable Discharge Diet: advance to your usual diet Activity: resume usual activities as tolerated - Forms/Instructions Additional Discharge Instructions: Follow with PCP in 1week, follow GI as scheduled Exam - Constitutional General appearance: no acute distress - Head Head exam: Present: normal inspection - Eye Eye exam: Present: EOMI - ENT ENT exam: Present: normal exam - Respiratory Respiratory exam: Present: clear to auscultation bilaterally - Cardiovascular Cardiovascular exam: Present: regular rate and rhythm - GI/Abdominal GI/Abdominal exam: Present: normal bowel sounds - Extremities Exam Extremities exam: Present: normal inspection
[2017-04-11] MEDS: AZITHROMYCIN INJ 500 MG in SODIUM CHLORIDE 0.9% 250 ML IV SCH (10:04)
[2017-04-11] MEDS: ENOXAPARIN 40 MG/0.4 ML SYRINGE SUBCUT SCH (10:05)
== END 2017-04-11 11:00 | disposition home or self-care (01) | DRG 191 ==
LOC: N.ED 03:03 → N.EDINP 04:26 → SUATTDRO 04:26 → N.TELES 04:49 → N.5E 17:18
PROVIDERS: ADMIT Internal Medicine; ATTEND Internal Medicine

== ENCOUNTER 2018-02-17 08:00 | Inpatient (IN) ==
[2018-02-17] MEDS ORDERED: LEVOFLOXACIN INJ 500 MG in PREMIX 1 EACH IV STA (08:01)
[2018-02-17] MEDS ORDERED: MAGNESIUM SULF RIDER 2 GM in PREMIX 1 EACH IV STA (08:01)
[2018-02-17] MEDS ORDERED: SODIUM CHLORIDE 0.9% 500 ML IV STA (08:01)
[2018-02-17] MEDS ORDERED: methylPREDNISolone SOD SUC 125 MG/2 ML VIAL IV STA (08:01)
[2018-02-17 08:22] LABS: Basophils % 0.5 % (0.0-0.8); Eosinophils # 0.1 10*3/uL (0.0-0.87); Eosinophils % 1.3 % (0.00-10.9); Hematocrit 41.9 VOL% (35.7-47.0); Hemoglobin 14.7 GM/DL (12.0-16.0); Immature Granulocytes % 0.4 %; Immature Granulocytes Absolute 0.03 #; Lymphocytes % 25.9 % (21.3-54.2); Mean Corpuscular HGB Conc 35.1 GM/DL (32-36); Mean Corpuscular Hemoglobin 30 PG (27-34); Mean Corpuscular Volume 86.2 FL (87-102); Mean Platelet Volume 8.7 FL (9.6-12.0); Monocytes # 0.7 10*3/uL (0.11-0.8); Monocytes % 8.7 % (1.7-12.7); Neutrophils # 4.8 10*3/uL (1.4-7.4); Neutrophils % 63.2 % (38.7-73.9); Platelet Count 202 T/CUMM (130-400); Red Blood Count 4.86 MC/CUMM (3.8-5.5); Red Cell Distribution Width 11.6 % (9.3-17.3); White Blood Count 7.6 T/CUMM (4-12)
[2018-02-17 08:30] LABS: PT Patient Result 10.6 SECS; Partial Thromboplastin Time 25.5 SECS (0-40)
[2018-02-17] MEDS ORDERED: ALBUTEROL NEB SOLN 5 MG/ML 20 ML/BOTTLE RESP TX SCH (08:30)
[2018-02-17] MEDS ORDERED: methylPREDNISolone SOD SUC 125 MG/2 ML VIAL ONE (08:30)
[2018-02-17] MEDS ORDERED: LEVOFLOXACIN INJ 100 ML IV ONE (08:30)
[2018-02-17 08:44] LABS: Alanine Aminotransferase 42 U/L (13-56); Albumin 4.1 G/DL (3.4-5.0); Alkaline Phosphatase 101 U/L (45-117); Aspartate Amino Transferase 19 U/L (0-37); Blood Urea Nitrogen 11 MG/DL (7-18); Calcium 9.2 MG/DL (8.5-10.1); Glucose 139 MG/DL (74-106); Osmolality,Calculated 270.1 MOS/KG (273-304); Potassium 3.7 MMOL/L (3.5-5.1); Sodium 135 MMOL/L (136-145); Total Protein 7.2 G/DL (6.4-8.3); Troponin I Only < 0.015 NG/ML (0.00-0.045)
[2018-02-17 09:08] LABS: ABG Base Excess 1.4 MMOL/L (-2.5-2.5); ABG HCO3 25.5 MMOL/L (20-26); ABG Oxygen Saturation 94.5 % (95-100); ABG PCO2 32.7 MM HG (35-48); ABG PH 7.477 (7.35-7.45); ABG PO2 71.2 MM HG (80-95); ABG TCO2 20.8 MMOL/L (23-27)
[2018-02-17] MEDS ORDERED: MAGNESIUM SULF RIDER 50 ML IV ONE (09:24)
[2018-02-17] MEDS ORDERED: LACTULOSE 20 GM/30 ML UDCUP PO PRN (10:45)
[2018-02-17] MEDS ORDERED: ONDANSETRON 4 MG/2 ML VIAL IV PRN (10:45)
[2018-02-17] MEDS ORDERED: traZODone 50 MG TABLET PO PRN (10:45)
[2018-02-17] MEDS ORDERED: ACETAMINOPHEN 325 MG TABLET PO PRN (10:45)
[2018-02-17] MEDS ORDERED: DOCUSATE SODIUM 100 MG CAPSULE PO PRN (10:45)
[2018-02-17] MEDS ORDERED: PANTOPRAZOLE 40 MG TABLET PO SCH (11:00)
[2018-02-17] MEDS ORDERED: ALBUTEROL 2.5 MG/3 ML NEB RESP TX PRN (12:46)
[2018-02-17] MEDS ORDERED: ALBUTEROL/IPRATROPIUM 3 ML NEB RESP TX SCH (13:00)
[2018-02-17] MEDS: PANTOPRAZOLE 40 MG TABLET PO SCH ×2 (14:03→20:17)
[2018-02-17] MEDS: BENZONATATE 100 MG CAPSULE PO SCH ×2 (14:04→20:17)
[2018-02-17] MEDS: ALBUTEROL/IPRATROPIUM 3 ML NEB RESP TX SCH ×3 (15:30→23:10)
[2018-02-17] MEDS: methylPREDNISolone SOD SUC 40 MG/1 ML VIAL IV SCH ×2 (17:08→23:49)
[2018-02-17] MEDS ORDERED: LITHIUM 300 MG CAPSULE PO SCH (21:00)
[2018-02-17] MEDS ORDERED: traZODone 50 MG TABLET PO SCH (21:00)
[2018-02-18] MEDS: ALBUTEROL/IPRATROPIUM 3 ML NEB RESP TX SCH ×3 (03:40→10:36)
[2018-02-18 07:54] LABS: Hematocrit 41.1 VOL% (35.7-47.0); Hemoglobin 13.8 GM/DL (12.0-16.0); Mean Corpuscular HGB Conc 33.6 GM/DL (32-36); Mean Corpuscular Hemoglobin 30 PG (27-34); Red Blood Count 4.67 MC/CUMM (3.8-5.5); Red Cell Distribution Width 11.8 % (9.3-17.3); White Blood Count 8.7 T/CUMM (4-12)
[2018-02-18 07:55] LABS: Basophils % 0.1 % (0.0-0.8); Immature Granulocytes % 0.6 %; Immature Granulocytes Absolute 0.05 #; Lymphocytes # 0.6 10*3/uL (1.4-4.0); Lymphocytes % 6.5 % (21.3-54.2); Mean Platelet Volume 9.3 FL (9.6-12.0); Monocytes # 0.6 10*3/uL (0.11-0.8); Monocytes % 7.3 % (1.7-12.7); Neutrophils # 7.5 10*3/uL (1.4-7.4); Neutrophils % 85.5 % (38.7-73.9); Platelet Count 186 T/CUMM (130-400)
[2018-02-18] MEDS: methylPREDNISolone SOD SUC 40 MG/1 ML VIAL IV SCH (08:21)
[2018-02-18] MEDS: METOCLOPRAMIDE 10 MG/10 ML UDCUP PO SCH ×2 (08:21→11:26)
[2018-02-18] MEDS: BENZONATATE 100 MG CAPSULE PO SCH (08:22)
[2018-02-18] MEDS: PANTOPRAZOLE 40 MG TABLET PO SCH (08:22)
[2018-02-18 08:25] LABS: Osmolality,Calculated 275.5 MOS/KG (273-304); Potassium 3.5 MMOL/L (3.5-5.1)
[2018-02-18] MEDS ORDERED: OXcarbazepine 300 MG TABLET PO SCH (09:00)
[2018-02-18 11:47] VITALS: BP 160/83
== END 2018-02-18 15:50 | disposition home or self-care (01) | DRG 191 ==
LOC: EDBD → EDUNIT# → N.ED 08:00 → N.EDINP 09:05 → SUATTDRO 09:05 → N.EDINP 10:30 → N.2E 10:37
PROVIDERS: ADMIT Hospitalist; ATTEND Internal Medicine